=== PATIENT | male | born 1945 | race Caucasian/White ===

== ENCOUNTER 2016-10-31 18:40 | Outpatient (CLI) | payer OTHER | END 2016-10-31 18:41 | disposition home or self-care (01) | DX: E11.9 Type 2 diabetes mellitus without complications (principal) ==

== ENCOUNTER 2017-01-23 08:29 | Outpatient (CLI) | payer OTHER | END 2017-01-23 08:30 | disposition home or self-care (01) | DX: E11.9 Type 2 diabetes mellitus without complications (principal) ==

== ENCOUNTER 2017-04-30 16:15 | Outpatient (CLI) | payer OTHER ==
[2017-04-30 13:32] LABS: ALBUMIN/GLOBULIN RATIO 1.4 (1.0-2.2); BILIRUBIN,TOTAL 1.1 mg/dL (0.2-1.0); BUN - BLOOD UREA NITROGEN 19 mg/dL (6-20); CALCIUM 9.9 mg/dL (8.5-10.3); CARBON DIOXIDE - CO2 25 mmol/L (21-32); CHLORIDE 101 mmol/L (101-111); CHOL/HDL RATIO 6.1 (<5.0); CHOLESTEROL 164 mg/dL; CREATININE 0.9 mg/dL (0.6-1.2); GFR - MDRD 84 (>89); GLUCOSE 135 mg/dL (70-100); HDL CHOLESTEROL 27 mg/dL; LDL/HDL RATIO 3.7 (<3.6); POTASSIUM 3.9 mmol/L (3.5-5.0); SODIUM 137 mmol/L (135-145); TOTAL PROTEIN 7.4 g/dL (6.7-8.2); TRIGLYCERIDES 178 mg/dL; VLDL CHOLESTEROL 36 mg/dL
[2017-04-30 14:37] LABS: HEMOGLOBIN A1C 0.87 g/dL
== END 2017-04-30 16:16 | disposition home or self-care (01) ==
LOC: LAB.WCP 16:15
PROVIDERS: ATTEND Physician Assistant Medical
DX: E11.9 Type 2 diabetes mellitus without complications (principal)
CPT/HCPCS: 36415; 80053; 80061; 83036

== ENCOUNTER 2017-05-21 05:53 | Day surgery (SDC) | payer OTHER ==
[2017-05-21] MEDS ORDERED: LACTATED RINGERS 1,000 ML IV ONE ×2 (07:00→09:15)
[2017-05-21] MEDS ORDERED: fentaNYL 100 MCG/2 ML VIAL IVP ONE (07:47)
[2017-05-21] MEDS ORDERED: MIDAZOLAM 2 MG/2 ML VIAL IVP ONE (07:47)
[2017-05-21 09:35] VITALS: BP 116/80
== END 2017-05-21 05:54 | disposition home or self-care (01) ==
LOC: SDS 05:53
PROVIDERS: ATTEND Surgery
PROC: 0DJD8ZZ Inspection of Lower Intestinal Tract, Via Natural or Artificial Opening Endoscopic (ICD-10-PCS; principal; 2017-05-21 07:30)
DX: Z12.11 Encounter for screening for malignant neoplasm of colon (principal); K64.8 Other hemorrhoids; E11.9 Type 2 diabetes mellitus without complications; Z79.82 Long term (current) use of aspirin; Z79.84 Long term (current) use of oral hypoglycemic drugs; Z87.891 Personal history of nicotine dependence
CPT/HCPCS: 45378; J7120

== ENCOUNTER 2017-07-13 08:19 | Outpatient (CLI) | payer OTHER ==
[2017-07-13 13:26] LABS: BASOPHILS # (AUTO) 0.1 10^3/uL (0.0-0.1); BASOPHILS % (AUTO) 1.1 %; EOSINOPHILS # (AUTO) 0.4 10^3/uL (0.0-0.7); EOSINOPHILS % (AUTO) 4.6 %; HCT - HEMATOCRIT 46.2 % (42.0-52.0); HGB - HEMOGLOBIN 15.6 g/dL (14.0-18.0); LYMPHOCYTES # (AUTO) 2.7 10^3/uL (1.5-3.5); LYMPHOCYTES % (AUTO) 35.1 %; MEAN CORPUSCULAR HEMOGLOBIN 30.6 pg (27.0-31.0); MEAN CORPUSCULAR HGB CONC 33.7 g/dL (32.0-36.0); MEAN CORPUSCULAR VOLUME 90.6 fL (80.0-94.0); MONOCYTES # (AUTO) 0.5 10^3/uL (0.0-1.0); MONOCYTES % (AUTO) 7.2 %; NUCLEATED RED BLOOD CELLS AUTO 0.1 /100WBC; RED BLOOD COUNT 5.09 10^6/uL (4.70-6.10); RED CELL DISTRIBUTION WIDTH 14.5 % (12.0-15.0); UNCORRECTED WHITE BLOOD COUNT 7.6 x10^3/uL; WHITE BLOOD COUNT 7.6 x10^3/uL (4.8-10.8)
[2017-07-13 13:39] LABS: HEMOGLOBIN A1C 0.85 g/dL
[2017-07-13 13:53] LABS: ALBUMIN/GLOBULIN RATIO 1.6 (1.0-2.2); BILIRUBIN,TOTAL 1.1 mg/dL (0.2-1.0); BUN - BLOOD UREA NITROGEN 16 mg/dL (6-20); CALCIUM 9.6 mg/dL (8.5-10.3); CARBON DIOXIDE - CO2 27 mmol/L (21-32); CHLORIDE 101 mmol/L (101-111); CHOL/HDL RATIO 5.4 (<5.0); CHOLESTEROL 163 mg/dL; CREATININE 1.2 mg/dL (0.6-1.2); GFR - MDRD 60 (>89); GLUCOSE 131 mg/dL (70-100); HDL CHOLESTEROL 30 mg/dL; LDL/HDL RATIO 3.3 (<3.6); POTASSIUM 3.9 mmol/L (3.5-5.0); SODIUM 137 mmol/L (135-145); TOTAL PROTEIN 7.4 g/dL (6.7-8.2); TRIGLYCERIDES 175 mg/dL; VLDL CHOLESTEROL 35 mg/dL
== END 2017-07-13 08:20 | disposition home or self-care (01) ==
LOC: LAB.WCP 08:19
PROVIDERS: ATTEND Physician Assistant Medical
DX: E11.9 Type 2 diabetes mellitus without complications (principal); Z12.5 Encounter for screening for malignant neoplasm of prostate; I10 Essential (primary) hypertension
CPT/HCPCS: 36415; 80053; 80061; 82043; 83036; 84153; 84443; 85025

== ENCOUNTER 2017-10-02 08:00 | Outpatient (CLI) | payer OTHER ==
[2017-10-02 12:54] LABS: CALCIUM 9.1 mg/dL (8.5-10.3); CREATININE 0.9 mg/dL (0.6-1.2)
[2017-10-02 13:35] LABS: HB2 TOTAL 16.3 g/dL; HEMOGLOBIN A1C 0.75 g/dL; HEMOGLOBIN A1C % 6.4 % (4.6-6.2)
== END 2017-10-02 08:01 | disposition home or self-care (01) ==
LOC: LAB.WCP 08:00
PROVIDERS: ATTEND Physician Assistant Medical
DX: E11.9 Type 2 diabetes mellitus without complications (principal)
CPT/HCPCS: 36415; 80048; 83036

== ENCOUNTER 2018-01-01 08:00 | Outpatient (CLI) | payer OTHER ==
[2018-01-01 13:00] LABS: HEMOGLOBIN A1C 0.7 g/dL; HEMOGLOBIN A1C % 5.9 % (4.6-6.2)
[2018-01-01 13:15] LABS: ALBUMIN 4.3 g/dL (3.2-5.5); ALBUMIN/GLOBULIN RATIO 1.5 (1.0-2.2); ALKALINE PHOSPHATASE 29 IU/L (42-121); ALT ALANINE AMINOTRANSFERASE 60 IU/L (10-60); AST ASPARTATE AMINOTRANSFERASE 47 IU/L (10-42); BUN - BLOOD UREA NITROGEN 21 mg/dL (6-20); CALCIUM 9.9 mg/dL (8.5-10.3); CARBON DIOXIDE - CO2 26 mmol/L (21-32); CHLORIDE 100 mmol/L (101-111); CHOL/HDL RATIO 6.3 (<5.0); CHOLESTEROL 170 mg/dL; CREATININE 1.1 mg/dL (0.6-1.2); GFR - MDRD 66 (>89); GLUCOSE 106 mg/dL (70-100); HDL CHOLESTEROL 27 mg/dL; LDL CHOLESTEROL,CALCULATED 102 mg/dL; LDL/HDL RATIO 3.8 (<3.6); SODIUM 135 mmol/L (135-145); TOTAL PROTEIN 7.2 g/dL (6.7-8.2); VLDL CHOLESTEROL 41 mg/dL
== END 2018-01-01 08:01 | disposition home or self-care (01) ==
LOC: LAB.WCP 08:00
PROVIDERS: ATTEND Physician Assistant Medical
DX: E11.9 Type 2 diabetes mellitus without complications (principal)
CPT/HCPCS: 36415; 80053; 80061; 83036; 83721

== ENCOUNTER 2018-04-03 08:00 | Outpatient (CLI) | payer OTHER ==
[2018-04-03 13:32] LABS: ALBUMIN 3.9 g/dL (3.2-5.5); ALBUMIN/GLOBULIN RATIO 1.2 (1.0-2.2); ALKALINE PHOSPHATASE 31 IU/L (42-121); ALT ALANINE AMINOTRANSFERASE 49 IU/L (10-60); AST ASPARTATE AMINOTRANSFERASE 46 IU/L (10-42); BILIRUBIN,TOTAL 0.9 mg/dL (0.2-1.0); BUN - BLOOD UREA NITROGEN 21 mg/dL (6-20); CARBON DIOXIDE - CO2 24 mmol/L (21-32); CHLORIDE 102 mmol/L (101-111); CHOL/HDL RATIO 4.6 (<5.0); CHOLESTEROL 142 mg/dL; CREATININE 1.4 mg/dL (0.6-1.2); GFR - MDRD 50 (>89); GLUCOSE 90 mg/dL (70-100); HDL CHOLESTEROL 31 mg/dL; LDL CHOLESTEROL,CALCULATED 70 mg/dL; LDL/HDL RATIO 2.3 (<3.6); SODIUM 137 mmol/L (135-145); TOTAL PROTEIN 7.1 g/dL (6.7-8.2); VLDL CHOLESTEROL 41 mg/dL
[2018-04-03 13:40] LABS: HB2 TOTAL 15.8 g/dL; HEMOGLOBIN A1C 0.74 g/dL; HEMOGLOBIN A1C % 6.4 % (4.6-6.2)
== END 2018-04-03 08:01 | disposition home or self-care (01) ==
LOC: LAB.WCP 08:00
PROVIDERS: ATTEND Physician Assistant Medical
DX: E11.9 Type 2 diabetes mellitus without complications (principal)
CPT/HCPCS: 36415; 80053; 80061; 83036; 83721

== ENCOUNTER 2018-07-03 08:15 | Outpatient (CLI) | payer OTHER ==
[2018-07-03 13:03] LABS: HB2 TOTAL 15.4 g/dL; HEMOGLOBIN A1C 0.69 g/dL; HEMOGLOBIN A1C % 6.3 % (4.6-6.2)
[2018-07-03 13:08] LABS: ALBUMIN 4.4 g/dL (3.2-5.5); ALBUMIN/GLOBULIN RATIO 1.4 (1.0-2.2); ALKALINE PHOSPHATASE 25 IU/L (42-121); ALT ALANINE AMINOTRANSFERASE 51 IU/L (10-60); AST ASPARTATE AMINOTRANSFERASE 43 IU/L (10-42); BILIRUBIN,TOTAL 1.1 mg/dL (0.2-1.0); BUN - BLOOD UREA NITROGEN 21 mg/dL (6-20); CALCIUM 9.3 mg/dL (8.5-10.3); CARBON DIOXIDE - CO2 26 mmol/L (21-32); CHLORIDE 101 mmol/L (101-111); CHOL/HDL RATIO 4.2 (<5.0); CHOLESTEROL 135 mg/dL; CREATININE 0.6 mg/dL (0.6-1.2); GFR - MDRD 133 (>89); GLUCOSE 106 mg/dL (70-100); HDL CHOLESTEROL 32 mg/dL; LDL CHOLESTEROL,CALCULATED 58 mg/dL; LDL/HDL RATIO 1.8 (<3.6); SODIUM 137 mmol/L (135-145); TOTAL PROTEIN 7.5 g/dL (6.7-8.2); VLDL CHOLESTEROL 45 mg/dL
== END 2018-07-03 08:16 | disposition home or self-care (01) ==
LOC: LAB.WCP 08:15
PROVIDERS: ATTEND Physician Assistant Medical
DX: E11.9 Type 2 diabetes mellitus without complications (principal)
CPT/HCPCS: 36415; 80053; 80061; 82043; 83036; 83721

== ENCOUNTER 2018-10-02 09:27 | Outpatient (CLI) | payer OTHER ==
[2018-10-02 12:48] LABS: CALCIUM 10.4 mg/dL (8.5-10.3); CREATININE 0.8 mg/dL (0.6-1.2)
[2018-10-02 12:57] LABS: HEMOGLOBIN A1C 0.72 g/dL; HEMOGLOBIN A1C % 6.3 % (4.6-6.2)
== END 2018-10-02 23:59 | disposition home or self-care (01) ==
LOC: LAB.WCP 09:27
PROVIDERS: ATTEND Physician Assistant Medical
DX: E11.9 Type 2 diabetes mellitus without complications (principal)
CPT/HCPCS: 36415; 80048; 83036

== ENCOUNTER 2018-10-21 10:31 | Outpatient (CLI) | payer OTHER ==
[2018-10-21] MEDS ORDERED: REGADENOSON 0.4 MG/5 ML SYRINGE IVP ONE ×2 (12:53→15:28)
--- NOTE | 2018-10-21 15:22 | CARDIAC PROCEDURE NOTE ---
DATE OF SERVICE: 10/21/2018 Physician: Dayana Jane MD, [facility] INDICATIONS FOR TEST: Hypertension. Atherosclerosis of [place] artery. CARDIAC RISK FACTORS: Male gender, advanced age, hypertension, family history of heart disease, elevated cholesterol, type 2 diabetes, remote ex-smoker who quit 18 years ago. There is a history of known peripheral arterial disease. DESCRIPTION OF PROCEDURE: After signing informed consent, the patient underwent a Lexiscan pharmaceutical stress test with nuclear myocardial perfusion imaging. Resting heart rate 66. Peak heart rate 92. Resting blood pressure 222/80. Peak blood pressure 260/80. The patient's resting blood pressure was excessive, this is likely from skipping last evening's and this morning's doses of Metoprolol plus "white coat hypertension." The patient was given time to relax, and blood pressure was remeasured several times, and remained in this range. The patient was given an option to reschedule the test or continue, and risks were described. The patient had no questions and chose to proceed with the test. Lexiscan was infused per protocol. The patient had brief flushing and low back pain, no shortness of breath or chest pressure. Aminophylline 25 mg IV was given for reversal due to excessive blood pressure response, possibly from the Lexiscan stress agent. RESTING EKG: Normal sinus rhythm, left atrial enlargement, LAFB, PRWP, flat T- waves in leads II, III and aVF, and V3 through V6. EKG AT [facility]: Pseudonormalization of T-waves in leads II, III, aVF, and V3 through V6. SUMMARY 1. Abnormal resting electrocardiogram. 2. Poorly controlled blood pressure at rest. 3. Ischemic changes by EKG criteria on this pharmaceutical stress test. 4. Nuclear images reported separately. cc: MD Wai Pandey MD TD: 10/21/2018 14:58 MTDD
--- NOTE | 2018-10-21 16:00 | Nuclear Medicine Report ---
Reason: HTN, ATHEROSCLEROSIS OF [place] ART[place] Procedure Date: 10/21/2018 Accession Number: [id number] / [id number] Procedure: NM - Myocardial Perfusion STR/RST CPT Code: FULL RESULT: EXAM: SINGLE-ISOTOPE PHARMACOLOGICAL STRESS TEST WITH REGADENOSON. SINGLE-ISOTOPE AND ONE-DAY REST/STRESS MYOCARDIAL PERFUSION SCANS WITH TOMOGRAPHIC IMAGING, QUANTITATIVE ANALYSIS, WALL MOTION ANALYSIS AND CALCULATION OF EJECTION FRACTION. EXAM DATE: 10/21/2018 03:26 PM. CLINICAL HISTORY: HTN, ATHEROSCLEROSIS OF [place]. COMPARISON: None. TECHNIQUE: After the intravenous administration of 10 mCi of Tc-99m sestamibi, a rest myocardial perfusion scan was done with tomography. Motion correction was applied when appropriate. After an appropriate delay, pharmacological stress was performed with the infusion of 0.4 mg regadenoson per protocol. According to protocol, 43 mCi of Tc-99m sestamibi was injected for stress myocardial perfusion scan. Motion correction was applied when appropriate. Gated tomographic images were obtained for wall motion analysis and computation of left ventricular ejection fraction. FINDINGS: There is mildly decreased activity in the distal septum on the rest images, normal on the stress images, presumed soft tissue attenuation artifact. There is moderately decreased activity in the inferolateral wall, similar between the rest and stress images. Computer analysis. Summed stress score 6 Summed rest score 6 Summed difference score 0 Wall motion analysis demonstrates no focal wall motion abnormality. The left ventricular end-diastolic volume is 63 cc. The left ventricular end-systolic volume is 9 cc. The left ventricular ejection fraction is calculated to be 86%. IMPRESSION: 1. Mild to moderate severity fixed defect in the inferolateral wall. No convincing reversible perfusion defects on visual analysis. 2. Left ventricular ejection fraction of >65%. 3. Normal segmental and global wall motion. 4. Normal left ventricular cavity size, no change with stress. 5. Based on computer analysis, mildly abnormal study with no ischemia. RADIA
== END 2018-10-21 10:32 | disposition home or self-care (01) ==
LOC: DI 10:31
PROVIDERS: ATTEND Internal Medicine Cardiovascular Disease
DX: I10 Essential (primary) hypertension (principal); I70.219 Atherosclerosis of native arteries of extremities with intermittent claudication, unspecified extremity; R94.31 Abnormal electrocardiogram [ECG] [EKG]; E78.00 Pure hypercholesterolemia, unspecified; E11.9 Type 2 diabetes mellitus without complications; Z87.891 Personal history of nicotine dependence; Z82.49 Family history of ischemic heart disease and other diseases of the circulatory system
CPT/HCPCS: 78452; 93017; A9500; J2785

== ENCOUNTER 2018-12-25 08:00 | Outpatient (CLI) | payer OTHER ==
[2018-12-25 13:46] LABS: ALBUMIN 4.1 g/dL (3.2-5.5); ALBUMIN/GLOBULIN RATIO 1.3 (1.0-2.2); ALKALINE PHOSPHATASE 32 IU/L (42-121); ALT ALANINE AMINOTRANSFERASE 57 IU/L (10-60); AST ASPARTATE AMINOTRANSFERASE 51 IU/L (10-42); BILIRUBIN,TOTAL 1.3 mg/dL (0.2-1.0); BUN - BLOOD UREA NITROGEN 21 mg/dL (6-20); CALCIUM 9.3 mg/dL (8.5-10.3); CARBON DIOXIDE - CO2 24 mmol/L (21-32); CHLORIDE 101 mmol/L (101-111); CHOLESTEROL 154 mg/dL; CREATININE 1.2 mg/dL (0.6-1.2); GFR - MDRD 60 (>89); GLUCOSE 127 mg/dL (70-100); HB2 TOTAL 15.2 g/dL; HDL CHOLESTEROL 31 mg/dL; HEMOGLOBIN A1C 0.73 g/dL; HEMOGLOBIN A1C % 6.5 % (4.6-6.2); LDL CHOLESTEROL,CALCULATED 78 mg/dL; LDL/HDL RATIO 2.5 (<3.6); SODIUM 136 mmol/L (135-145); TOTAL PROTEIN 7.2 g/dL (6.7-8.2); VLDL CHOLESTEROL 45 mg/dL
== END 2018-12-25 08:01 | disposition home or self-care (01) ==
LOC: LAB.WCP 08:00
PROVIDERS: ATTEND Physician Assistant Medical
DX: E11.9 Type 2 diabetes mellitus without complications (principal); E78.5 Hyperlipidemia, unspecified
CPT/HCPCS: 36415; 80053; 80061; 83036; 83721

== ENCOUNTER 2019-04-16 08:00 | Outpatient (CLI) | payer OTHER ==
[2019-04-16 13:15] LABS: HB2 TOTAL 15.5 g/dL
[2019-04-16 13:16] LABS: HEMOGLOBIN A1C 0.72 g/dL; HEMOGLOBIN A1C % 6.4 % (4.6-6.2)
[2019-04-16 14:15] LABS: CALCIUM 10.1 mg/dL (8.5-10.3); CREATININE 1.4 mg/dL (0.6-1.2)
== END 2019-04-16 23:59 | disposition home or self-care (01) ==
LOC: LAB.WCP 08:00
PROVIDERS: ATTEND Physician Assistant Medical
DX: E11.9 Type 2 diabetes mellitus without complications (principal)
CPT/HCPCS: 36415; 80048; 83036

== ENCOUNTER 2019-07-16 08:00 | Outpatient (CLI) | payer OTHER ==
[2019-07-16 12:36] LABS: BASOPHILS # (AUTO) 0.1 10^3/uL (0.0-0.1); BASOPHILS % (AUTO) 1.1 %; EOSINOPHILS # (AUTO) 0.4 10^3/uL (0.0-0.7); EOSINOPHILS % (AUTO) 4.6 %; HGB - HEMOGLOBIN 14.3 g/dL (14.0-18.0); LYMPHOCYTES # (AUTO) 2.5 10^3/uL (1.5-3.5); LYMPHOCYTES % (AUTO) 33.2 %; MEAN CORPUSCULAR HEMOGLOBIN 29.9 pg (27.0-31.0); MEAN CORPUSCULAR HGB CONC 31.9 g/dL (32.0-36.0); MEAN CORPUSCULAR VOLUME 93.5 fL (80.0-94.0); MONOCYTES # (AUTO) 0.6 10^3/uL (0.0-1.0); MONOCYTES % (AUTO) 7.9 %; NEUTROPHILS % (AUTO) 52.7 %; PLT - PLATELET COUNT 261 10^3/uL (130-450); RED BLOOD COUNT 4.79 10^6/uL (4.70-6.10); WHITE BLOOD COUNT 7.6 x10^3/uL (4.8-10.8)
[2019-07-16 12:51] LABS: ALBUMIN 4.2 g/dL (3.2-5.5); ALBUMIN/GLOBULIN RATIO 1.4 (1.0-2.2); ALKALINE PHOSPHATASE 32 IU/L (42-121); ALT ALANINE AMINOTRANSFERASE 55 IU/L (10-60); AST ASPARTATE AMINOTRANSFERASE 43 IU/L (10-42); BILIRUBIN,TOTAL 1.2 mg/dL (0.2-1.0); BUN - BLOOD UREA NITROGEN 25 mg/dL (6-20); CALCIUM 9.7 mg/dL (8.5-10.3); CARBON DIOXIDE - CO2 27 mmol/L (21-32); CHLORIDE 103 mmol/L (101-111); CHOL/HDL RATIO 5.5 (<5.0); CHOLESTEROL 154 mg/dL; CREATININE 1.5 mg/dL (0.6-1.2); GFR - MDRD 46 (>89); GLUCOSE 132 mg/dL (70-100); HDL CHOLESTEROL 28 mg/dL; LDL CHOLESTEROL,CALCULATED 85 mg/dL; SODIUM 140 mmol/L (135-145); TOTAL PROTEIN 7.3 g/dL (6.7-8.2); VLDL CHOLESTEROL 41 mg/dL
[2019-07-16 12:56] LABS: CREATININE,URINE 151.9 mg/dL; MICROALBUM/CREATININE RATIO,UR 7.2 ug/mg (<30.0); MICROALBUMIN,URINE 1.1 mg/dL (0-300.0)
[2019-07-16 13:33] LABS: HB2 TOTAL 15.4 g/dL; HEMOGLOBIN A1C 0.74 g/dL; HEMOGLOBIN A1C % 6.5 % (4.6-6.2)
== END 2019-07-16 23:59 | disposition home or self-care (01) ==
LOC: LAB.WCP 08:00
PROVIDERS: ATTEND Physician Assistant Medical
DX: E11.9 Type 2 diabetes mellitus without complications (principal); E78.5 Hyperlipidemia, unspecified; I10 Essential (primary) hypertension
CPT/HCPCS: 36415; 80053; 80061; 82043; 82570; 83036; 83721; 84443; 85025

== ENCOUNTER 2019-10-16 08:44 | Outpatient (CLI) | payer OTHER ==
[2019-10-16 12:24] LABS: ALBUMIN 4.1 g/dL (3.2-5.5); ALBUMIN/GLOBULIN RATIO 1.3 (1.0-2.2); CALCIUM 9.2 mg/dL (8.5-10.3); CREATININE 1.3 mg/dL (0.6-1.2); TOTAL PROTEIN 7.3 g/dL (6.7-8.2); URIC ACID 9.1 mg/dL (2.6-7.2)
[2019-10-16 12:56] LABS: HB2 TOTAL 14.4 g/dL; HEMOGLOBIN A1C 0.8 g/dL; HEMOGLOBIN A1C % 7.2 % (4.6-6.2)
== END 2019-10-16 08:45 | disposition home or self-care (01) ==
LOC: LAB.WCP 08:44
PROVIDERS: ATTEND Physician Assistant Medical
DX: E11.9 Type 2 diabetes mellitus without complications (principal); M79.672 Pain in left foot
CPT/HCPCS: 36415; 80053; 83036; 84550

== ENCOUNTER 2020-01-13 08:26 | Outpatient (CLI) | payer OTHER ==
[2020-01-13 12:35] LABS: ALBUMIN 4.1 g/dL (3.2-5.5); ALBUMIN/GLOBULIN RATIO 1.5 (1.0-2.2); ALKALINE PHOSPHATASE 33 IU/L (42-121); ALT ALANINE AMINOTRANSFERASE 51 IU/L (10-60); AST ASPARTATE AMINOTRANSFERASE 41 IU/L (10-42); BILIRUBIN,TOTAL 1.3 mg/dL (0.2-1.0); BUN - BLOOD UREA NITROGEN 30 mg/dL (6-20); CALCIUM 9.2 mg/dL (8.5-10.3); CARBON DIOXIDE - CO2 24 mmol/L (21-32); CHLORIDE 106 mmol/L (101-111); CHOL/HDL RATIO 6.3 (<5.0); CHOLESTEROL 146 mg/dL; CREATININE 1.6 mg/dL (0.6-1.2); GLUCOSE 110 mg/dL (70-100); HDL CHOLESTEROL 23 mg/dL; LDL CHOLESTEROL,CALCULATED 77 mg/dL; LDL/HDL RATIO 3.3 (<3.6); SODIUM 139 mmol/L (135-145); TOTAL PROTEIN 6.9 g/dL (6.7-8.2); VLDL CHOLESTEROL 46 mg/dL
[2020-01-13 12:39] LABS: HB2 TOTAL 13.8 g/dL; HEMOGLOBIN A1C 0.72 g/dL; HEMOGLOBIN A1C % 6.9 % (4.6-6.2)
== END 2020-01-13 23:59 | disposition home or self-care (01) ==
LOC: LAB.WCP 08:26
PROVIDERS: ATTEND Physician Assistant Medical
DX: E11.9 Type 2 diabetes mellitus without complications (principal)
CPT/HCPCS: 36415; 80053; 80061; 83036; 83721

== ENCOUNTER 2020-04-13 08:37 | Outpatient (CLI) | payer MEDICARE ==
[2020-04-13 12:39] LABS: CALCIUM 9.8 mg/dL (8.5-10.3); CREATININE 1.3 mg/dL (0.6-1.2)
== END 2020-04-13 23:59 | disposition home or self-care (01) ==
LOC: LAB.WCP 08:37
PROVIDERS: ATTEND Physician Assistant Medical
DX: E11.9 Type 2 diabetes mellitus without complications (principal)
CPT/HCPCS: 36415; 80048; 81599; 83036

== ENCOUNTER 2020-07-16 08:00 | Outpatient (CLI) | payer MEDICARE ==
[2020-07-16 12:00] LABS: ALBUMIN/GLOBULIN RATIO 1.3 (1.0-2.2); ALKALINE PHOSPHATASE 34 IU/L (42-121); ALT ALANINE AMINOTRANSFERASE 44 IU/L (10-60); AST ASPARTATE AMINOTRANSFERASE 46 IU/L (10-42); BILIRUBIN,TOTAL 1.2 mg/dL (0.2-1.0); BUN - BLOOD UREA NITROGEN 23 mg/dL (6-20); CALCIUM 9.4 mg/dL (8.5-10.3); CARBON DIOXIDE - CO2 25 mmol/L (21-32); CHLORIDE 102 mmol/L (101-111); CHOLESTEROL 155 mg/dL; CREATININE 1.3 mg/dL (0.6-1.2); GLUCOSE 141 mg/dL (70-100); HDL CHOLESTEROL 26 mg/dL; LDL CHOLESTEROL,CALCULATED 92 mg/dL; LDL/HDL RATIO 3.5 (<3.6); SODIUM 136 mmol/L (135-145); VLDL CHOLESTEROL 37 mg/dL
[2020-07-16 12:13] LABS: HEMOGLOBIN A1c% 8.1 % (4.27-6.07)
== END 2020-07-16 23:59 | disposition home or self-care (01) ==
LOC: LAB.WCP 08:00
PROVIDERS: ATTEND Physician Assistant Medical
DX: E11.9 Type 2 diabetes mellitus without complications (principal)
CPT/HCPCS: 36415; 80053; 80061; 83036; 83721

== ENCOUNTER 2020-10-19 08:21 | Outpatient (CLI) | payer MEDICARE ==
[2020-10-19 12:30] LABS: ALBUMIN 4.1 g/dL (3.2-5.5); ALBUMIN/GLOBULIN RATIO 1.2 (1.0-2.2); ALKALINE PHOSPHATASE 35 IU/L (42-121); ALT ALANINE AMINOTRANSFERASE 45 IU/L (10-60); AST ASPARTATE AMINOTRANSFERASE 35 IU/L (10-42); BILIRUBIN,TOTAL 1.6 mg/dL (0.2-1.0); BUN - BLOOD UREA NITROGEN 27 mg/dL (6-20); CALCIUM 9.8 mg/dL (8.5-10.3); CARBON DIOXIDE - CO2 25 mmol/L (21-32); CHLORIDE 103 mmol/L (101-111); CHOL/HDL RATIO 4.1 (<5.0); CHOLESTEROL 98 mg/dL; CREATININE 1.6 mg/dL (0.6-1.2); GLUCOSE 156 mg/dL (70-100); HDL CHOLESTEROL 24 mg/dL; LDL CHOLESTEROL,CALCULATED 41 mg/dL; LDL/HDL RATIO 1.7 (<3.6); TOTAL PROTEIN 7.4 g/dL (6.7-8.2); VLDL CHOLESTEROL 33 mg/dL
[2020-10-19 12:49] LABS: HEMOGLOBIN A1c% 8.6 % (4.27-6.07)
== END 2020-10-19 23:59 | disposition home or self-care (01) ==
LOC: LAB.WCP 08:21
PROVIDERS: ATTEND Physician Assistant Medical
DX: E11.9 Type 2 diabetes mellitus without complications (principal)
CPT/HCPCS: 36415; 80053; 80061; 83036; 83721

== ENCOUNTER 2021-01-19 08:04 | Outpatient (CLI) | payer MEDICARE ==
[2021-01-19 13:02] LABS: CALCIUM 9.8 mg/dL (8.5-10.3); CREATININE 1.4 mg/dL (0.6-1.2); POTASSIUM 4.2 mmol/L (3.5-5.0)
[2021-01-19 13:04] LABS: ESTIMATED AVERAGE GLUCOSE 177 mg/dL (70-100); HEMOGLOBIN A1c% 7.8 % (4.27-6.07)
== END 2021-01-19 23:59 | disposition home or self-care (01) ==
LOC: LAB.WCP 08:04
PROVIDERS: ATTEND Physician Assistant Medical
DX: E11.9 Type 2 diabetes mellitus without complications (principal)
CPT/HCPCS: 36415; 80048; 83036

== ENCOUNTER 2021-01-25 07:00 | Outpatient (CLI) | payer MEDICARE ==
[2021-01-25 18:33] LABS: MICROALBUM/CREATININE RATIO,UR 48.9 ug/mg (<30.0); MICROALBUMIN,URINE 9.1 mg/dL (0-300.0)
== END 2021-01-25 23:59 | disposition home or self-care (01) ==
LOC: LAB.WCP 07:00
PROVIDERS: ATTEND Physician Assistant Medical
DX: E11.9 Type 2 diabetes mellitus without complications (principal)
CPT/HCPCS: 82043; 82570

== ENCOUNTER 2021-03-16 08:00 | Outpatient (CLI) | payer MEDICARE ==
[2021-03-16 13:42] LABS: CHOL/HDL RATIO 4.1 (<5.0); CHOLESTEROL 106 mg/dL; HDL CHOLESTEROL 26 mg/dL; LDL CHOLESTEROL,CALCULATED 45 mg/dL; LDL/HDL RATIO 1.7 (<3.6); TRIGLYCERIDES 177 mg/dL; VLDL CHOLESTEROL 35 mg/dL
== END 2021-03-16 23:59 | disposition home or self-care (01) ==
LOC: LAB.WCP 08:00
PROVIDERS: ATTEND Internal Medicine Cardiovascular Disease
DX: I70.219 Atherosclerosis of native arteries of extremities with intermittent claudication, unspecified extremity (principal)
CPT/HCPCS: 36415; 80061; 83721

== ENCOUNTER 2021-04-21 08:00 | Outpatient (CLI) | payer MEDICARE ==
[2021-04-21 11:58] LABS: ESTIMATED AVERAGE GLUCOSE 180 mg/dL (70-100); HEMOGLOBIN A1c% 7.9 % (4.27-6.07)
[2021-04-21 11:59] LABS: ALBUMIN 4.4 g/dL (3.2-5.5); ALBUMIN/GLOBULIN RATIO 1.6 (1.0-2.2); ALKALINE PHOSPHATASE 34 IU/L (42-121); ALT ALANINE AMINOTRANSFERASE 33 IU/L (10-60); AST ASPARTATE AMINOTRANSFERASE 34 IU/L (10-42); BILIRUBIN,TOTAL 1.2 mg/dL (0.2-1.0); BUN - BLOOD UREA NITROGEN 33 mg/dL (6-20); CALCIUM 9.6 mg/dL (8.5-10.3); CARBON DIOXIDE - CO2 26 mmol/L (21-32); CHLORIDE 101 mmol/L (101-111); CHOL/HDL RATIO 4.2 (<5.0); CHOLESTEROL 106 mg/dL; CREATININE 1.5 mg/dL (0.6-1.2); GFR - MDRD 46 (>89); GLUCOSE 116 mg/dL (70-100); HDL CHOLESTEROL 25 mg/dL; LDL CHOLESTEROL,CALCULATED 44 mg/dL; LDL/HDL RATIO 1.8 (<3.6); SODIUM 137 mmol/L (135-145); TOTAL PROTEIN 7.1 g/dL (6.7-8.2); TRIGLYCERIDES 184 mg/dL; VLDL CHOLESTEROL 37 mg/dL
== END 2021-04-21 23:59 | disposition home or self-care (01) ==
LOC: LAB.WCP 08:00
PROVIDERS: ATTEND Physician Assistant Medical
DX: E11.9 Type 2 diabetes mellitus without complications (principal)
CPT/HCPCS: 36415; 80053; 80061; 83036; 83721

== ENCOUNTER 2021-07-22 08:00 | Outpatient (CLI) | payer MEDICARE ==
[2021-07-22 12:38] LABS: CALCIUM 10.1 mg/dL (8.5-10.3); CREATININE 1.5 mg/dL (0.6-1.2); POTASSIUM 4.1 mmol/L (3.5-5.0)
[2021-07-22 13:02] LABS: ESTIMATED AVERAGE GLUCOSE 200 mg/dL (70-100); HEMOGLOBIN A1c% 8.6 % (4.27-6.07)
== END 2021-07-22 23:59 | disposition home or self-care (01) ==
LOC: LAB.WCP 08:00
PROVIDERS: ATTEND Physician Assistant Medical
DX: E11.9 Type 2 diabetes mellitus without complications (principal)
CPT/HCPCS: 36415; 80048; 83036

== ENCOUNTER 2021-08-02 11:56 | Outpatient (CLI) | payer MEDICARE | END 2021-08-02 23:59 | disposition home or self-care (01) | LOC: LAB.WCP 11:56 | PROVIDERS: ATTEND Physician Assistant Medical | DX: Z12.5 Encounter for screening for malignant neoplasm of prostate (principal) | CPT/HCPCS: 36415; 84153 ==

== ENCOUNTER 2021-10-19 08:00 | Outpatient (CLI) | payer MEDICARE ==
[2021-10-19 12:35] LABS: CALCIUM 9.5 mg/dL (8.5-10.3); CREATININE 1.3 mg/dL (0.6-1.2); POTASSIUM 4.2 mmol/L (3.5-5.0)
[2021-10-19 12:51] LABS: ESTIMATED AVERAGE GLUCOSE 220 mg/dL (70-100); HEMOGLOBIN A1c% 9.3 % (4.27-6.07)
== END 2021-10-19 23:59 | disposition home or self-care (01) ==
LOC: LAB.WCP 08:00
PROVIDERS: ATTEND Physician Assistant Medical
DX: E11.9 Type 2 diabetes mellitus without complications (principal)
CPT/HCPCS: 36415; 80048; 83036

== ENCOUNTER 2021-11-29 08:35 | Outpatient (CLI) | payer MEDICARE ==
--- NOTE | 2021-11-29 12:06 | MRI Report ---
PROCEDURE: Shoulder RT W/O INDICATIONS: RIGHT SHOULDER PAIN TECHNIQUE: Noncontrast oblique coronal T2 fast spin echo with fat saturation, oblique sagittal T1 spin echo and T2 fast spin echo with fat saturation, axial T1 spin echo and T2 fast spin echo with fat saturation t hrough the shoulder. COMPARISON: None. Findings: Supraspinatus: Mild tendinopathy with interstitial tear. Infraspinatus: Mild to moderate tendinopathy with small partial articular and bursal surface tears. Subscapularis: No evidence of tear. Teres minor: No evidence of tear. Labrum: No evidence of tear. Biceps tendon: No evidence of subluxation or tear. Small amount of fluid surrounds the tendon, concer margot for tenosynovitis. Acromioclavicular joint: Moderate degeneration with T2 hyperintense signal within the articulation. Muscle: No significant atrophy. Bones: No significant abnormality. Fibrocystic change in the humeral head. Specifically, no evidence of fracture, contusion, or necrosis. Miscellaneous: Small glenohumeral joint effusion. Trace subacromial/subdeltoid bursal fluid. No intra-articular bodies. Intact coracoclavicular ligament. IMPRESSION: 1. Mild supraspinatus tendinopathy with interstitial tear. 2. Psif-cf-pmadhben infraspinatus tendinopathy with small partial articular and bursal surface tears. 3. Mild biceps tenosynovitis. 4. Moderate AC joint degeneration. 5. Trace subacromial/subdeltoid bursitis. 6. Small glenohumeral joint effusion. Reviewed by: Shivam Kincaid MD on 11/29/2021 12:04 PM PST Approved by: Shivam Kincaid MD on 11/29/2021 12:04 PM PST Station ID: [id number]
== END 2021-11-29 08:36 | disposition home or self-care (01) ==
LOC: DI 08:35
PROVIDERS: ATTEND Orthopaedic Surgery
DX: M75.121 Complete rotator cuff tear or rupture of right shoulder, not specified as traumatic (principal); M75.21 Bicipital tendinitis, right shoulder; M19.011 Primary osteoarthritis, right shoulder; M75.51 Bursitis of right shoulder; M25.411 Effusion, right shoulder

== ENCOUNTER 2022-01-06 08:46 | Outpatient (CLI) | payer MEDICARE, OTHER ==
--- NOTE | 2022-01-06 10:08 | Ultrasound Report ---
PROCEDURE: Duplex Ext Veins Left INDICATIONS: LEG EDEMA TECHNIQUE: Real-time imaging, as well as color and pulse Doppler interrogation, were performed of the lower extr emity deep veins from the inguinal ligament to the popliteal fossa. COMPARISON: None. FINDINGS: The deep veins are normally compressible, and free of intraluminal thrombus. Color and pu lse Doppler demonstrate normal phasic intraluminal flow. There is normal augmentation response to di stal compression maneuver. IMPRESSION: No evidence of deep vein thrombosis involving the left lower extremity. Reviewed by: Nicole Campbell MD, PhD on 01/06/2022 10:06 AM PDT Approved by: Nicole Campbell MD, PhD on 01/06/2022 10:06 AM PDT Station ID: [id number]
--- NOTE | 2022-01-06 10:20 | Ultrasound Report ---
PROCEDURE: Ankle Brachial Index INDICATIONS: LEG EDEMA TECHNIQUE: Ankle-brachial indices were obtained bilaterally and recorded. COMPARISONS: Ankle clinical index, 06/14/2016. FINDINGS: Right ankle brachial index (MEAGHAN): 0.98 Left ankle brachial index (MEAGHAN): 1.0 Healing potential: Ankle pressures >55 mm Hg in non-diabetics and >80 mm Hg in diabetics are likely to achieve primary h ealing of ischemic foot ulcers. Toe pressures >30 mm Hg are likely to achieve primary healing of ischemic foot ulcers, toe or transme tatarsal amputations. IMPRESSION: Normal ankle-brachial indices bilaterally. Reviewed by: Randell Samaniego MD on 01/06/2022 10:18 AM PDT Approved by: Randell Samaniego MD on 01/06/2022 10:18 AM PDT Station ID: [id number]
== END 2022-01-06 08:47 | disposition home or self-care (01) ==
LOC: DI 08:46
PROVIDERS: ATTEND Physician Assistant Medical
DX: R60.0 Localized edema (principal); I73.9 Peripheral vascular disease, unspecified
CPT/HCPCS: 93922

== ENCOUNTER 2022-01-18 08:15 | Outpatient (CLI) | payer OTHER ==
[2022-01-18 12:17] LABS: ALBUMIN 4.5 g/dL (3.2-5.5); ALBUMIN/GLOBULIN RATIO 1.6 (1.0-2.2); ALKALINE PHOSPHATASE 28 IU/L (42-121); ALT ALANINE AMINOTRANSFERASE 24 IU/L (10-60); AST ASPARTATE AMINOTRANSFERASE 30 IU/L (10-42); BILIRUBIN,TOTAL 1.5 mg/dL (0.2-1.0); BUN - BLOOD UREA NITROGEN 26 mg/dL (6-20); CALCIUM 9.6 mg/dL (8.5-10.3); CARBON DIOXIDE - CO2 24 mmol/L (21-32); CHLORIDE 103 mmol/L (101-111); CHOL/HDL RATIO 4.3 (<5.0); CHOLESTEROL 112 mg/dL; CREATININE 1.4 mg/dL (0.6-1.2); GFR - MDRD 50 (>89); GLUCOSE 114 mg/dL (70-100); HDL CHOLESTEROL 26 mg/dL; LDL CHOLESTEROL,CALCULATED 56 mg/dL; LDL/HDL RATIO 2.2 (<3.6); POTASSIUM 4.4 mmol/L (3.5-5.0); SODIUM 139 mmol/L (135-145); TOTAL PROTEIN 7.4 g/dL (6.7-8.2); TRIGLYCERIDES 151 mg/dL; VLDL CHOLESTEROL 30 mg/dL
[2022-01-18 20:16] LABS: ESTIMATED AVERAGE GLUCOSE 197 mg/dL (70-100); HEMOGLOBIN A1c% 8.5 % (4.27-6.07)
== END 2022-01-18 08:16 | disposition home or self-care (01) ==
LOC: LAB.N 08:15
PROVIDERS: ATTEND Physician Assistant Medical
DX: E11.9 Type 2 diabetes mellitus without complications (principal)
CPT/HCPCS: 36415; 80053; 80061; 83036; 83721

== ENCOUNTER 2022-03-31 13:05 | Outpatient (CLI) | payer OTHER ==
[2022-03-31 18:34] LABS: BILIRUBIN,URINE NEGATIVE (NEGATIVE); GLUCOSE, URINE (UA) NEGATIVE (NEGATIVE); KETONES,URINE (UA) NEGATIVE (NEGATIVE); LEUKOCYTE ESTERASE, URINE NEGATIVE (NEGATIVE); NITRITE,URINE NEGATIVE (NEGATIVE); OCCULT BLOOD,URINE NEGATIVE (NEGATIVE); PH,URINE 6.5 PH (5.0-7.5); PROTEIN,URINE NEGATIVE (NEGATIVE); UROBILINOGEN,URINE 0.2 (NORMAL) E.U./dL (NORMAL)
[2022-03-31 18:35] LABS: CLARITY,URINE CLEAR (CLEAR)
[2022-03-31 18:49] LABS: BACTERIA,URINE Few /HPF (None Seen); RBC,URINE None Seen /HPF (0-5); SQUAMOUS EPITHELIAL CELL,UR FEW Squamous (<= Few); WBC,URINE 0-3 /HPF (0-3)
== END 2022-03-31 13:06 | disposition home or self-care (01) ==
LOC: LAB.N 13:05
PROVIDERS: ATTEND Physician Assistant Medical
DX: M10.9 Gout, unspecified (principal)
CPT/HCPCS: 36415; 81001; 81003; 84550; 87086

== ENCOUNTER 2022-04-20 09:31 | Outpatient (CLI) | payer OTHER ==
[2022-04-20 12:39] LABS: CALCIUM 9.9 mg/dL (8.5-10.3); CREATININE 1.3 mg/dL (0.6-1.2); POTASSIUM 4.3 mmol/L (3.5-5.0)
[2022-04-20 12:49] LABS: ESTIMATED AVERAGE GLUCOSE 192 mg/dL (70-100); HEMOGLOBIN A1c% 8.3 % (4.27-6.07)
== END 2022-04-20 09:32 | disposition home or self-care (01) ==
LOC: LAB.N 09:31
PROVIDERS: ATTEND Physician Assistant Medical
DX: E11.9 Type 2 diabetes mellitus without complications (principal)
CPT/HCPCS: 36415; 80048; 83036

== ENCOUNTER 2022-06-22 08:49 | Outpatient (CLI) | payer OTHER | END 2022-06-22 08:50 | disposition home or self-care (01) | LOC: MAC.MOP 08:49 | PROVIDERS: ATTEND Physician Assistant Medical | DX: R00.2 Palpitations (principal); M17.12 Unilateral primary osteoarthritis, left knee; M25.462 Effusion, left knee | CPT/HCPCS: 93246 ==

== ENCOUNTER 2022-06-22 09:45 | Outpatient (CLI) | payer OTHER ==
--- NOTE | 2022-06-22 14:24 | XRAY Report ---
PROCEDURE: Knee 3 View LT INDICATIONS: KNEE PAIN,LEFT TECHNIQUE: 3 views of the left knee(s) were acquired. COMPARISON: None. FINDINGS: Bones: No fractures or dislocations. No suspicious bony lesions. Moderate medial and patellofemora l as well as mild lateral compartment narrowing is present. Small periarticular osteophytes are prese nt. No erosions. Soft tissues: Moderate joint effusion. No suspicious soft tissue calcifications. IMPRESSION: Moderate effusion with tricompartmental arthritic change. Reviewed by: Estee Knott MD on 06/22/2022 2:23 PM PDT Approved by: Estee Knott MD on 06/22/2022 2:23 PM PDT Station ID: [id number]
== END 2022-06-22 09:46 | disposition home or self-care (01) ==
LOC: DI 09:45
PROVIDERS: ATTEND Physician Assistant Medical
DX: M17.12 Unilateral primary osteoarthritis, left knee (principal); M25.462 Effusion, left knee

== ENCOUNTER 2022-06-26 09:44 | Outpatient (CLI) | payer OTHER ==
[2022-06-26 10:02] VITALS: BP 151/89
== END 2022-06-26 09:45 | disposition home or self-care (01) ==
LOC: MAC.MOP 09:44
PROVIDERS: ATTEND Physician Assistant Medical
DX: R00.2 Palpitations (principal)

== ENCOUNTER → 2022-07-26 | Outpatient (CLI) | payer OTHER | LOC: MAC.MOP 11:00 | PROVIDERS: ATTEND Physician Assistant Medical | DX: I47.1 Supraventricular tachycardia (principal); I47.20 Ventricular tachycardia, unspecified; I45.9 Conduction disorder, unspecified; I49.1 Atrial premature depolarization; I49.3 Ventricular premature depolarization | CPT/HCPCS: 93248 ==

== ENCOUNTER 2022-08-05 08:43 | Outpatient (CLI) | payer OTHER ==
[2022-08-05 09:54] LABS: ESTIMATED AVERAGE GLUCOSE 232 mg/dL (70-100); HEMOGLOBIN A1c% 9.7 % (4.27-6.07)
== END 2022-08-05 08:44 | disposition home or self-care (01) ==
LOC: LAB 08:43
PROVIDERS: ATTEND Physician Assistant Medical
DX: E11.9 Type 2 diabetes mellitus without complications (principal)
CPT/HCPCS: 36415; 83036

== ENCOUNTER 2022-11-01 08:55 | Outpatient (CLI) | payer OTHER ==
[2022-11-01 09:27] LABS: CALCIUM 9.3 mg/dL (8.5-10.3); CARBON DIOXIDE - CO2 24 mmol/L (21-32); CHLORIDE 100 mmol/L (101-111); GLUCOSE 228 mg/dL (70-100); POTASSIUM 4.2 mmol/L (3.5-5.0); SODIUM 136 mmol/L (135-145)
[2022-11-01 09:55] LABS: ALBUMIN 4.3 g/dL (3.2-5.5); ALBUMIN/GLOBULIN RATIO 1.5 (1.0-2.2); ALKALINE PHOSPHATASE 37 IU/L (42-121); ALT ALANINE AMINOTRANSFERASE 29 IU/L (10-60); AST ASPARTATE AMINOTRANSFERASE 27 IU/L (10-42); BILIRUBIN,TOTAL 1.2 mg/dL (0.2-1.0); BUN - BLOOD UREA NITROGEN 26 mg/dL (6-20); CHOL/HDL RATIO 4.2 (<5.0); CHOLESTEROL 117 mg/dL; CREATININE 1.5 mg/dL (0.6-1.2); GFR - MDRD 46 (>89); HDL CHOLESTEROL 28 mg/dL; LDL CHOLESTEROL,CALCULATED 52 mg/dL; LDL/HDL RATIO 1.9 (<3.6); TOTAL PROTEIN 7.1 g/dL (6.7-8.2); TRIGLYCERIDES 184 mg/dL; VLDL CHOLESTEROL 37 mg/dL
[2022-11-01 12:10] LABS: ESTIMATED AVERAGE GLUCOSE 237 mg/dL (70-100); HEMOGLOBIN A1c% 9.9 % (4.27-6.07)
== END 2022-11-01 08:56 | disposition home or self-care (01) ==
LOC: LAB 08:55
PROVIDERS: ATTEND Physician Assistant Medical
DX: E11.9 Type 2 diabetes mellitus without complications (principal); M10.9 Gout, unspecified
CPT/HCPCS: 36415; 80053; 80061; 83036; 83721; 84550

== ENCOUNTER 2023-02-07 07:49 | Outpatient (CLI) | payer OTHER ==
[2023-02-07 08:40] LABS: ALBUMIN 4.3 g/dL (3.2-5.5); ALBUMIN/GLOBULIN RATIO 1.4 (1.0-2.2); ALKALINE PHOSPHATASE 32 IU/L (42-121); ALT ALANINE AMINOTRANSFERASE 29 IU/L (10-60); AST ASPARTATE AMINOTRANSFERASE 31 IU/L (10-42); BILIRUBIN,TOTAL 1.4 mg/dL (0.2-1.0); BUN - BLOOD UREA NITROGEN 31 mg/dL (6-20); CALCIUM 9.6 mg/dL (8.5-10.3); CARBON DIOXIDE - CO2 24 mmol/L (21-32); CHLORIDE 104 mmol/L (101-111); CHOLESTEROL 120 mg/dL; CREATININE 1.4 mg/dL (0.6-1.2); GFR - MDRD 49 (>89); GLUCOSE 138 mg/dL (70-100); HDL CHOLESTEROL 24 mg/dL; LDL CHOLESTEROL,CALCULATED 52 mg/dL; LDL/HDL RATIO 2.2 (<3.6); POTASSIUM 4.2 mmol/L (3.5-5.0); SODIUM 139 mmol/L (135-145); TOTAL PROTEIN 7.4 g/dL (6.7-8.2); TRIGLYCERIDES 220 mg/dL; VLDL CHOLESTEROL 44 mg/dL
[2023-02-07 18:18] LABS: ESTIMATED AVERAGE GLUCOSE 174 mg/dL (70-100); HEMOGLOBIN A1c% 7.7 % (4.27-6.07)
== END 2023-02-07 07:50 | disposition home or self-care (01) ==
LOC: LAB 07:49
PROVIDERS: ATTEND Physician Assistant Medical
DX: E11.9 Type 2 diabetes mellitus without complications (principal); Z12.5 Encounter for screening for malignant neoplasm of prostate
CPT/HCPCS: 36415; 80053; 80061; 83036; 83721; 84153

== ENCOUNTER 2023-03-27 08:45 | Outpatient (CLI) | payer OTHER ==
[2023-03-27 09:46] LABS: CREATININE 1.5 mg/dL (0.6-1.2); POTASSIUM 4.3 mmol/L (3.5-5.0)
[2023-03-27 17:35] LABS: ESTIMATED AVERAGE GLUCOSE 160 mg/dL (70-100); HEMOGLOBIN A1c% 7.2 % (4.27-6.07)
== END 2023-03-27 08:46 | disposition home or self-care (01) ==
LOC: LAB 08:45
PROVIDERS: ATTEND Physician Assistant Medical
DX: E11.9 Type 2 diabetes mellitus without complications (principal)
CPT/HCPCS: 36415; 80048; 83036

== ENCOUNTER 2023-06-29 08:21 | Outpatient (CLI) | payer OTHER ==
[2023-06-29 09:02] LABS: ALBUMIN 4.4 g/dL (3.2-5.5); ALBUMIN/GLOBULIN RATIO 1.8 (1.0-2.2); ALKALINE PHOSPHATASE 37 IU/L (42-121); ALT ALANINE AMINOTRANSFERASE 18 IU/L (10-60); AST ASPARTATE AMINOTRANSFERASE 22 IU/L (10-42); BILIRUBIN,TOTAL 1.5 mg/dL (0.2-1.0); BUN - BLOOD UREA NITROGEN 27 mg/dL (6-20); CALCIUM 9.7 mg/dL (8.5-10.3); CARBON DIOXIDE - CO2 27 mmol/L (21-32); CHLORIDE 107 mmol/L (101-111); CHOL/HDL RATIO 3.3 (<5.0); CHOLESTEROL 95 mg/dL; CREATININE 1.8 mg/dL (0.6-1.3); GFR - MDRD 37 (>89); GLUCOSE 107 mg/dL (74-104); HDL CHOLESTEROL 29 mg/dL; LDL CHOLESTEROL,CALCULATED 33 mg/dL; LDL/HDL RATIO 1.1 (<3.6); POTASSIUM 4.6 mmol/L (3.5-4.5); SODIUM 140 mmol/L (135-145); TOTAL PROTEIN 6.9 g/dL (6.4-8.9); TRIGLYCERIDES 166 mg/dL (48-352); VLDL CHOLESTEROL 33 mg/dL
[2023-06-29 10:09] LABS: ESTIMATED AVERAGE GLUCOSE 154 mg/dL (70-100)
== END 2023-06-29 08:22 | disposition home or self-care (01) ==
LOC: LAB 08:21
PROVIDERS: ATTEND Physician Assistant Medical
DX: E11.9 Type 2 diabetes mellitus without complications (principal)
CPT/HCPCS: 36415; 80053; 80061; 83036; 83721

== ENCOUNTER 2023-08-23 12:27 | Outpatient (CLI) | payer OTHER ==
--- NOTE | 2023-08-23 14:09 | XRAY Report ---
PROCEDURE: Chest 2 View X-Ray INDICATIONS: URI TECHNIQUE: 2 views of the chest were acquired. COMPARISON: None. FINDINGS: Surgical changes and devices: None. Lungs and pleura: No pleural effusions or pneumothorax. Lungs are clear. Diffuse bilateral airspa ce opacities with no focal consolidation. Mediastinum: Mediastinal contours appear normal. Heart size is normal. Bones and chest wall: No suspicious bony lesions. Overlying soft tissues appear unremarkable. IMPRESSION: 1. Diffuse bilateral airspace opacities with no focal consolidation. Differential diagnosis includes chronic changes, a diffuse infectious process, and CHF. No prior x-ray is available for comparison. 2. Cardiomegaly. Reviewed by: Lyndon Matta on 08/23/2023 1:08 PM PATRICIA Approved by: Lyndon Matta on 08/23/2023 1:08 PM [facility] Station ID: [id number]
== END 2023-08-23 12:28 | disposition home or self-care (01) ==
LOC: DI 12:27
PROVIDERS: ATTEND Physician Assistant Medical
DX: J06.9 Acute upper respiratory infection, unspecified (principal); R91.8 Other nonspecific abnormal finding of lung field; I51.7 Cardiomegaly

== ENCOUNTER 2023-09-20 15:36 | Outpatient (CLI) | payer OTHER ==
[2023-09-20 16:32] LABS: CALCIUM 9.3 mg/dL (8.5-10.3); CREATININE 4.6 mg/dL (0.6-1.3); POTASSIUM 5.1 mmol/L (3.5-4.5)
--- NOTE | 2023-09-20 17:37 | CT Report ---
PROCEDURE: ABDOMEN/PELVIS WO INDICATIONS: LLQ ABDOMEN PAIN TECHNIQUE: A CT scan of the abdomen and pelvis was performed without the use of intravenous contrast. Images we re recorded and evaluated at appropriate window settings. Reformats: coronal and sagittal. For radiat ion dose reduction, the following was used: automated exposure control, adjustment of mA and/or kV ac cording to patient size. COMPARISON: 08/24/2022, chest x-ray 08/23/2023 FINDINGS: Image quality: Excellent. Lung bases and heart: Small to moderate right and trace left pleural effusions are present. Mild card iomegaly. Small pericardial effusion. No hiatal hernia. Liver: No contour deformity or attenuation abnormality. Gallbladder and biliary tree: No calcifications or wall thickening. No significant biliary dilatation . Spleen: No splenomegaly. Pancreas: Normal. Adrenals: No adrenal nodule. Kidneys and ureters: Mild left renal cortical atrophy. Atherosclerotic calcifications. No definite co llecting system calcification and no hydronephrosis. Bowel and peritoneum: Mild wall thickening in the midportion of the sigmoid colon where several diver ticula are seen. There is mild adjacent fascial thickening and trace free fluid. This loop of colon i s central in the upper pelvis. No extraluminal gas or drainable focal fluid collections. Elsewhere th e bowel vargas are normal caliber and there are a few diverticula in the hepatic flexure colon. No sma ll bowel obstruction. Normal stomach. Normal appendix. Lymph nodes: No central or retroperitoneal adenopathy. Vessels: There is heavy coarse calcification in the proximal abdominal aorta at the renal artery orig ins. The mid and distal aorta demonstrates fusiform aneurysmal dilatation up to 3.6 cm in diameter. V jonah heavy calcification at the iliac bifurcation. There is a right common iliac stent in place. PELVIS Reproductive organs: Normal prostate gland. Bladder: Mild circumferential urinary bladder wall thickening, slight hyperemia, and fat stranding ar ound the serosal surface. No intraluminal abnormalities. Pelvic lymph nodes: No pelvic adenopathy by size criteria. Bones: No aggressive osseous abnormality. Other: No significant ventral or inguinal hernia. IMPRESSION: 1. Findings of adjacent inflammation and fluid surrounding a slightly thickened segment of mid sigmoi d colon. Mild or resolving diverticulitis may be present. 2. This segment of colon is immediately adjacent to the urinary bladder which demonstrates wall thick ening, hyperemia, and para vesicular inflammation. This may indicate a reactive cystitis or an infect ious cystitis. Correlation with UA is recommended. 3. Incidental note of mid to distal abdominal aortic aneurysm and heavy atherosclerotic calcification as described. Reviewed by: Siri Lora MD on 09/20/2023 5:35 PM PST Approved by: Siri Lora MD on 09/20/2023 5:35 PM PST Station ID: [id number]
== END 2023-09-20 15:37 | disposition home or self-care (01) ==
LOC: DI 15:36
PROVIDERS: ATTEND Physician Assistant
DX: N32.89 Other specified disorders of bladder (principal); R10.32 Left lower quadrant pain
CPT/HCPCS: 36415; 80048; 82088; 84244

== ENCOUNTER 2023-09-20 17:03 | Inpatient (IN) | payer MEDICARE, OTHER ==
[2023-09-20 17:50] LABS: BILIRUBIN,URINE NEGATIVE (NEGATIVE); GLUCOSE, URINE (UA) NEGATIVE (NEGATIVE); KETONES,URINE (UA) NEGATIVE (NEGATIVE); LEUKOCYTE ESTERASE, URINE NEGATIVE (NEGATIVE); NITRITE,URINE NEGATIVE (NEGATIVE); OCCULT BLOOD,URINE NEGATIVE (NEGATIVE); PROTEIN,URINE NEGATIVE (NEGATIVE); UROBILINOGEN,URINE 0.2 (NORMAL) E.U./dL (NORMAL)
[2023-09-20 17:53] LABS: CLARITY,URINE CLEAR (CLEAR)
[2023-09-20 18:03] LABS: BASOPHILS % (AUTO) 0.5 %; EOSINOPHILS # (AUTO) 0.4 10^3/uL (0.0-0.7); EOSINOPHILS % (AUTO) 5.5 %; HCT - HEMATOCRIT 30.2 % (42.0-52.0); HGB - HEMOGLOBIN 9.9 g/dL (14.0-18.0); LYMPHOCYTES # (AUTO) 1.5 10^3/uL (1.5-3.5); LYMPHOCYTES % (AUTO) 20.2 %; MEAN CORPUSCULAR HEMOGLOBIN 29.1 pg (27.0-31.0); MEAN CORPUSCULAR HGB CONC 32.8 g/dL (32.0-36.0); MEAN CORPUSCULAR VOLUME 88.8 fL (80.0-94.0); MEAN PLATELET VOLUME 9.1 fL (7.4-11.4); MONOCYTES # (AUTO) 0.6 10^3/uL (0.0-1.0); MONOCYTES % (AUTO) 7.4 %; NEUTROPHILS % (AUTO) 66.3 %; PLT - PLATELET COUNT 177 10^3/uL (130-450); RED CELL DISTRIBUTION WIDTH 15.3 % (12.0-15.0); WHITE BLOOD COUNT 7.6 x10^3/uL (4.8-10.8)
[2023-09-20 18:21] LABS: ALBUMIN 4.2 g/dL (3.2-5.5)
[2023-09-20 18:31] LABS: ALBUMIN/GLOBULIN RATIO 1.9 (1.0-2.2); CALCIUM 9.1 mg/dL (8.5-10.3); CREATININE 4.4 mg/dL (0.6-1.3); POTASSIUM 4.9 mmol/L (3.5-4.5); TOTAL PROTEIN 6.4 g/dL (6.4-8.9)
[2023-09-20] MEDS ORDERED: SODIUM CHLORIDE 0.9% 1,000 ML IV STA ×2 (19:09→21:27)
[2023-09-20] MEDS ORDERED: metroNIDAZOLE 500 MG/100 ML 500 MG/100 ML BAG IV ONE (20:38)
[2023-09-20] MEDS ORDERED: AMOX/CLAV 875 MG/125 MG TABLET PO STA (20:38)
[2023-09-20] MEDS ORDERED: ONDANSETRON 4 MG/2 ML VIAL IVP STA (22:51)
[2023-09-21] MEDS ORDERED: SODIUM CHLORIDE 0.9% 1,000 ML IV STA (00:05)
--- NOTE | 2023-09-21 00:31 | ED Physician Documentation ---
PD HPI ABD PAIN - Stated complaint Stated Complaint: LT SIDE ABD PX - Chief complaint Chief Complaint: Abd Pain - History obtained from History obtained from: Patient - Additional information Additional information: The patient is sent to the emergency department for chief complaint of "abnormal labs" and left lower quadrant abdominal pain. The patient states that he has had the pain for the last couple of days and because of this, his primary doctor ordered some labs and a CT scan. The patient has a history of diverticulitis and this is what was suspected. However, when labs came back, the patient was found to have elevated BUN and creatinine above his usual and was sent here for further evaluation. He did receive a noncontrast CT as an outpatient this morning. The patient has a history of diabetes and poorly controlled hypertension and has for years had stable renal insufficiency with GFR is in the 40s to 50s, creatinines in the 1.3-1.6 range, and BUNs in the 20s to 30s. He is followed for his diabetes by endocrinology at [facility], for coronary artery disease by cardiology at [facility], and for peripheral vascular disease by vascular at [facility]. He has had iliofemoral stents placed. The patient states that for about the past month, he has noticed a decreased appetite in general and does not think he has been drinking much fluid throughout that time. However, for the last week, he states that every time he tries to drink anything, he feels like he is going to gag, so he is hardly been drinking any water. He states he feels a little tired but other than that in the left lower quadrant abdominal pain, he states is not feeling too bad. The patient denies any fevers or chills. No dysuria. No respiratory symptoms. He has been urinating. No other complaints at this time. PD PAST MEDICAL HISTORY - Past Medical History Cardiovascular: Hypertension, High cholesterol Respiratory: Sleep apnea, Other Endocrine/Autoimmune: Type 2 diabetes GI: GERD, Ulcers, Other : Renal insuffiency HEENT: Glaucoma Psych: None Musculoskeletal: Osteoarthritis, Other Derm: None - Past Surgical History Ortho: Other Cardiovascular: Other HEENT: Rhinoplasty - Present Medications Home Medications: Ambulatory Orders Medication Instructions Recorded Confirmed Glimepiride 2 mg PO DAILY 05/21/17 12/02/21 [place]-3/Dha/Epa/Fish Oil [Fish Oil 600 mg PO DAILY 05/21/17 12/02/21 500 mg Softgel] Aller-Dorita 1 tab PO DAILY 12/02/21 12/02/21 Colchicine [Colcrys] 0.6 mg PO DAILY 12/02/21 12/02/21 Insulin NPH Human Isophane 18 - 20 unit SUBQ BID 12/02/21 12/02/21 [Humulin N Kwikpen] Lisinopril [Zestril] 20 mg PO DAILY 12/02/21 12/02/21 Metoprolol Tartrate [Lopressor] 25 mg PO BID 12/02/21 12/02/21 [place]-3S/Dha/Epa/Fish Oil [Fish 1 cap PO DAILY 12/02/21 12/02/21 Oil 1,200 mg Softgel] Rosuvastatin Calcium [Crestor] 20 mg PO 12/02/21 Ubidecarenone/Vit E Acet [Co Q-10 1 each PO DAILY 12/02/21 12/02/21 100 mg Softgel] amLODIPine [Norvasc] 5 mg PO BID 12/02/21 12/02/21 - Allergies Allergies/Adverse Reactions: Allergies Allergy/AdvReac Type Severity Reaction Status Date / Time Sulfa (Sulfonamide Allergy Itching Verified 09/20/23 17:20 Antibiotics) cyclobenzaprine AdvReac Unknown Verified 09/20/23 17:20 Uyedzhd-PQO-NdF Reductase AdvReac Cramps Verified 09/20/23 17:20 Inhibitor [Rhtjtgz-Oka-Tmr Reductase Inhibitor] - Social History Smoking Status: Former smoker PD ED PE NORMAL - Vitals Vital signs reviewed: Yes - General General: Alert and oriented X 3, No acute distress, Well developed/nourished, Other (Overall well-appearing patient in no apparent distress.) - HEENT HEENT: Atraumatic, PERRL, EOMI, Moist mucous membranes - Neck Neck: Supple, no meningeal sign - Cardiac Cardiac: RRR, No murmur - Respiratory Respiratory: No respiratory distress, Clear bilaterally - Abdomen Abdomen: Soft, Non distended, Other (Left lower quadrant abdominal tenderness, no rebound or guarding.) - Derm Derm: Normal color, Warm and dry, No rash - Extremities Extremities: No deformity, No edema - Neuro Neuro: Alert and oriented X 3, sales trader 2-12 intact, Normal speech, Other (Grossly intact) - Psych Psych: Normal mood, Normal affect Results - Vitals Vitals: Vital Signs - 24 hr 09/20/23 09/20/23 09/20/23 17:11 19:30 20:00 Temperature 36.6 C Heart Rate 68 56 L 59 L Respiratory 17 16 17 Rate Blood Pressure 225/75 H 172/62 H O2 Saturation 96 95 96 09/20/23 22:00 Temperature Heart Rate 63 Respiratory 17 Rate Blood Pressure 211/78 H O2 Saturation 94 Oxygen O2 Source Room air - Labs Labs: Laboratory Tests 09/20/23 09/20/23 09/20/23 17:21 17:58 17:58 WBC 7.6 RBC 3.40 L Hgb 9.9 L Hct 30.2 L MCV 88.8 MCH 29.1 MCHC 32.8 RDW 15.3 H Plt Count 177 MPV 9.1 Neut # (Auto) 5.0 Lymph # (Auto) 1.5 [place] # (Auto) 0.6 Eos # (Auto) 0.4 Baso # (Auto) 0.0 Absolute Nucleated RBC 0.00 Nucleated RBC % 0.0 Sodium 133 L Potassium 4.9 H Chloride 105 Carbon Dioxide 17 L Anion Gap 11.0 BUN 86 H* Creatinine 4.4 H Estimated GFR (MDRD) 13 L Glucose 100 Calcium 9.1 Total Bilirubin 1.0 AST 16 ALT 12 Alkaline Phosphatase 42 Total Protein 6.4 Albumin 4.2 Globulin 2.2 Albumin/Globulin Ratio 1.9 Lipase 84 H Urine Color YELLOW Urine Clarity CLEAR Urine pH 6.0 Ur Specific [place] <=1.005 Urine Protein NEGATIVE Urine Glucose (UA) NEGATIVE Urine Ketones NEGATIVE Urine Occult Blood NEGATIVE Urine Nitrite NEGATIVE Urine Bilirubin NEGATIVE Urine Urobilinogen 0.2 (NORMAL) Ur Leukocyte Esterase NEGATIVE Ur Microscopic Review NOT INDICATED Urine Culture Comments NOT INDICATED PD Medical Decision Making - ED course Complexity details: reviewed old records, reviewed results, re-evaluated patient, considered differential, d/w patient, d/w hospice consultant ED course: The patient was started on IV fluids after is able to review his labs from this morning, which showed a GFR of 13. I repeated the labs here and he was found to have a BUN of 86, creatinine of 4.4, and GFR of 13. I did review his labs from prior visits and found that he has had fairly stable kidney function going back to 2019. His last labs, done a few weeks ago, showed the patient to be at his baseline kidney function. The patient's urinalysis here was completely normal. His white blood cell count was normal and he was moderately anemic. The potassium was found to be 4.9. The remainder of his ER abdominal panel was unremarkable. I did consult nephrology at [facility], since it seems this is where the patient gets the majority of his specialty care, and was able to discuss the case with Dr. Ramsay, who is on-call. He did review the patient's records and it appears the patient's assistant film editor has ordered renal ultrasound and renal studies, but these have not been done yet. Dr. Ramsay stated that it is highly unlikely that the patient would require dialysis as an inpatient, given his normal urinalysis and the fact that he is making urine. He stated that although they would be willing to transfer, the current transfer situation is very difficult at [facility], as it is at every [facility], and as such, that a reasonable approach would be to admit the patient here would be for fluid hydration and serial labs with plan to refer to nephrology as an outpatient and complete the ultrasound and renal studies that have already been ordered. The patient was agreeable to this plan. I did discuss the case with the on-call telehospitalist, who was agreeable. I have reviewed the patient's CT from this morning, and this does show likely sigmoid diverticulitis. The patient has been given antibiotics here in the emergency department for his diverticulitis. I have given the patient 2 full liters of normal saline and he is currently receiving his third. He has urinated twice while in the emergency department. Departure - Departure Disposition: [facility] DC/Xfer Clinical Impression: Acute on chronic renal failure, Diverticulitis Condition: Serious
[2023-09-21] MEDS ORDERED: SODIUM CHLORIDE FLUSH 0.9% 10 ML SYRINGE IVP PRN (01:47)
[2023-09-21] MEDS ORDERED: ONDANSETRON 4 MG/2 ML VIAL IVP PRN (01:47)
[2023-09-21] MEDS: SODIUM CHLORIDE 0.9% 1,000 ML IV SCH ×2 (02:31→15:02)
--- NOTE | 2023-09-21 04:22 | HISTORY & PHYSICAL EXAMINATION ---
Chief Complaint - Chief Complaint Chief Complaint: abd pain, reduced oral intake, worsening renal function History of Present Illness - History of Present Illness HPI Comment/Other: pt presents with generalized abd discomfort and loose stools with symptoms that have been progressively worsening over past few days. he states that he has not been eating much since around , d/t "bronchitis." he was seen as outpt and provider had ordered some lab work and abd imaging (CT) given his h/o diverticulitis. CT returned back positive for diverticulitis and lab work was very concerning for worsening renal function, with Cr >4. pt is making urine and denies any blood or discomfort with urination. denies any hematuria or blood per rectum. no chest pain or sob. he states he feels nauseated when he tries to eat. History - Past Medical History Cardiovascular: reports: Hypertension, High cholesterol Respiratory: reports: Sleep apnea, Other Endocrine/Autoimmune: reports: Type 2 diabetes GI: reports: GERD, Ulcers, Other : reports: Renal insuffiency HEENT: reports: Glaucoma Psych: reports: None Musculoskeletal: reports: Osteoarthritis, Other Derm: reports: None MRSA Hx?: No - Past Surgical History Ortho: reports: Other Cardiovascular: reports: Other HEENT: reports: Rhinoplasty Meds/Allgy - Home Medications Home Medications: Ambulatory Orders Medication Instructions Recorded Confirmed Glimepiride 2 mg PO DAILY 05/21/17 12/02/21 [place]-3/Dha/Epa/Fish Oil [Fish Oil 600 mg PO DAILY 05/21/17 12/02/21 500 mg Softgel] Aller-Dorita 1 tab PO DAILY 12/02/21 12/02/21 Colchicine [Colcrys] 0.6 mg PO DAILY 12/02/21 12/02/21 Insulin NPH Human Isophane 18 - 20 unit SUBQ BID 12/02/21 12/02/21 [Humulin N Kwikpen] Lisinopril [Zestril] 20 mg PO DAILY 12/02/21 12/02/21 Metoprolol Tartrate [Lopressor] 25 mg PO BID 12/02/21 12/02/21 [place]-3S/Dha/Epa/Fish Oil [Fish 1 cap PO DAILY 12/02/21 12/02/21 Oil 1,200 mg Softgel] Rosuvastatin Calcium [Crestor] 20 mg PO 12/02/21 Ubidecarenone/Vit E Acet [Co Q-10 1 each PO DAILY 12/02/21 12/02/21 100 mg Softgel] amLODIPine [Norvasc] 5 mg PO BID 12/02/21 12/02/21 - Allergies Allergies/Adverse Reactions: Allergies Allergy/AdvReac Type Severity Reaction Status Date / Time Sulfa (Sulfonamide Allergy Itching Verified 09/20/23 17:20 Antibiotics) cyclobenzaprine AdvReac Unknown Verified 09/20/23 17:20 Klylkzh-MZF-DmX Reductase AdvReac Cramps Verified 09/20/23 17:20 Inhibitor [Cyxhtnh-Vbp-Nfz Reductase Inhibitor] Review of Systems - Other Findings Other Findings: 14 pt review done with positives per hpi; all others reviewed as negative Exam - Vital Signs Vital Signs: Vital Signs x48h Temp Pulse Pulse Resp BP BP Pulse Ox 09/21/23 03:10 37.2 C 67 22 179/65 H 94 09/21/23 02:00 61 17 150/62 H 92 09/21/23 00:00 59 L 16 143/52 H 94 09/20/23 22:00 63 17 211/78 H 94 - Physical Exam Comments/Other: gen - aaox3, nad, polite heent - eomi, nc/at heart - per ed charting lungs - per ed charting abd - soft, diffuse tenderness per pt msk - no acute trauma Conclusion/Plan - Lab Results Fish Bones: 09/20/23 17:58 09/20/23 17:58 - Other Other Results/Comments: pt with - - acute renal failure unclear etiology multifactorial - volume depletion / dehydration, diabetic nephropathy, autoimmune, etc pending nephrology w/u as outpt check renal sono, continue IVF, avoid nephrotoxins as much as possible pt still making urine and UA wnl check urine Na, Cr, protein - acute diverticulitis h/o same a few years ago contributory to above and below rocephin + flagyl, continue IVF, supportive mgmt - decreased po intake contributory to and in setting of above may also be d/t diabetic gastropathy (nausea, reflux when trying to eat) zofran prn, ivf, encourage CLD for now further orders per clinical course
[2023-09-21] MEDS: metroNIDAZOLE 500 MG/100 ML 500 MG/100 ML BAG IV SCH ×3 (05:07→20:39)
[2023-09-21] MEDS: PANTOPRAZOLE 40 MG TABLET PO SCH (06:20)
[2023-09-21] MEDS ORDERED: hydrALAZINE INJ 20 MG/ML VIAL IVP PRN (07:38)
[2023-09-21 07:56] LABS: BASOPHILS % (AUTO) 0.2 %; EOSINOPHILS # (AUTO) 0.3 10^3/uL (0.0-0.7); HCT - HEMATOCRIT 28.1 % (42.0-52.0); HGB - HEMOGLOBIN 9.1 g/dL (14.0-18.0); LYMPHOCYTES # (AUTO) 0.6 10^3/uL (1.5-3.5); LYMPHOCYTES % (AUTO) 5.9 %; MEAN CORPUSCULAR HEMOGLOBIN 29.5 pg (27.0-31.0); MEAN CORPUSCULAR HGB CONC 32.4 g/dL (32.0-36.0); MEAN CORPUSCULAR VOLUME 91.2 fL (80.0-94.0); MEAN PLATELET VOLUME 9.2 fL (7.4-11.4); MONOCYTES # (AUTO) 0.7 10^3/uL (0.0-1.0); MONOCYTES % (AUTO) 6.7 %; NEUTROPHILS # (AUTO) 8.5 10^3/uL (1.5-6.6); PLT - PLATELET COUNT 159 10^3/uL (130-450); RED BLOOD COUNT 3.08 10^6/uL (4.70-6.10); RED CELL DISTRIBUTION WIDTH 15.5 % (12.0-15.0); WHITE BLOOD COUNT 10.1 x10^3/uL (4.8-10.8)
[2023-09-21 08:20] LABS: CALCIUM 8.2 mg/dL (8.5-10.3); CREATININE 4.8 mg/dL (0.6-1.3); POTASSIUM 5.3 mmol/L (3.5-4.5)
[2023-09-21] MEDS: SODIUM CHLORIDE FLUSH 0.9% 10 ML SYRINGE IVP SCH ×2 (08:53→20:06)
[2023-09-21] MEDS: cefTRIAXone 1 GM in SODIUM CHLORIDE 0.9% MINIBAG 100 ML IV SCH (08:55)
[2023-09-21] MEDS ORDERED: FISH OIL PO SCH (09:00)
[2023-09-21] MEDS ORDERED: OMEGA PO SCH (09:00)
[2023-09-21] MEDS: HEPARIN 5,000 UNIT/ML VIAL SUBQ SCH ×2 (09:00→20:39)
[2023-09-21] MEDS ORDERED: EPA PO SCH (09:00)
[2023-09-21] MEDS ORDERED: METOPROLOL TARTRATE 25 MG TABLET PO SCH (09:00)
[2023-09-21] MEDS ORDERED: DHA PO SCH (09:00)
[2023-09-21] MEDS ORDERED: ASCORBIC ACID 500 MG TABLET PO SCH (09:00)
[2023-09-21] MEDS: INSULIN LISPRO 300 UNIT/3 ML PEN SUBQ SCH ×4 (09:04→21:43)
[2023-09-21 09:06] LABS: CREATININE,URINE 188.7 mg/dL
[2023-09-21 11:32] LABS: ESTIMATED AVERAGE GLUCOSE 120 mg/dL (70-100); HEMOGLOBIN A1c% 5.8 % (4.27-6.07)
--- NOTE | 2023-09-21 12:04 | PHARMACY PROGRESS NOTE ---
- Best Possible Medication History Admit Date and Time: 09/21/23 09 Processed by: Pharmacy Medication History completed: Yes Patient Interview: Completed Secondary Source(s): Spouse/Significant other, Insurance records As the person ultimately responsible for medication therapy, providers are able to order a medication from an existing home medication list in [facility] via the "Reconcile Routine" prior to Confirmation of that medication by ground support agent. Such practice is discouraged except when the physician, in their clinical judgment, deems that a medical need exists for a medication without regard to previous use.
--- NOTE | 2023-09-21 12:20 | Ultrasound Report ---
PROCEDURE: Retroperitoneal INDICATIONS: kaity TECHNIQUE: Real-time scanning was performed of the retroperitoneal organs, with image documentation. COMPARISON: Renal ultrasound, 08/18/2016. CT abdomen and pelvis without, 09/20/2023. FINDINGS: Limited examination of left kidney due to overlying bowel gas. Kidneys: Kidneys are normal in size. Right kidney measures 9.6 cm long; left kidney measures 10.3 c m long. Right renal cortical thickness is 0.6 cm; left renal cortical thickness is 1.0 cm. No solid masses, hydronephrosis, or nephrolithiasis. Bladder: Pre-void bladder volume is 28 mL. The patient did not void. Pre-void images demonstrate no intraluminal masses or stones. On pre-void images, both ureteral jets are noted with color Doppler interrogation. (Of note, ureteral jets may not be detectable in up to 25% of cases due to insufficie nt differences in specific gravity between ureteral and bladder urine). Prostate is prominent in siz e. Miscellaneous: No free abdominal fluid. IMPRESSION: 1. Left kidney is suboptimally visualized. A cause for KAITY is not identified. No hydronephrosis. 2. Nondistended urinary bladder. Unable to evaluate post void residual. 3. Prominent prostate. Reviewed by: Randell Samaniego MD on 09/21/2023 12:18 PM PST Approved by: Randell Samaniego MD on 09/21/2023 12:18 PM PST Station ID: [id number]
[2023-09-21] MEDS: LACTOBACILLUS RHAMNOSUS GG CAPSULE PO SCH (12:31)
[2023-09-21] MEDS: ATORVASTATIN 40 MG TABLET PO SCH (12:31)
[2023-09-21] MEDS: METOPROLOL SUCCINATE 25 MG TABLET PO SCH (12:31)
[2023-09-21] MEDS: amLODIPine 5 MG TABLET PO SCH (12:31)
[2023-09-21] MEDS: COLCHICINE 0.6 MG TABLET PO SCH (12:31)
[2023-09-21] MEDS: OMEGA-3 ACID ETHYL ESTERS 1 GM CAPSULE PO SCH (12:32)
[2023-09-21] MEDS: ACETAMINOPHEN 325 MG TABLET PO PRN (12:35)
[2023-09-21] MEDS: ASPIRIN EC 81 MG TABLET PO SCH (12:36)
[2023-09-22] MEDS: SODIUM CHLORIDE FLUSH 0.9% 10 ML SYRINGE IVP SCH ×3 (00:34→16:47)
[2023-09-22] MEDS: SODIUM CHLORIDE 0.9% 1,000 ML IV SCH (01:41)
[2023-09-22] MEDS: ACETAMINOPHEN 325 MG TABLET PO PRN ×3 (02:47→16:47)
[2023-09-22] MEDS: metroNIDAZOLE 500 MG/100 ML 500 MG/100 ML BAG IV SCH ×2 (05:02→12:58)
[2023-09-22 05:50] LABS: BASOPHILS % (AUTO) 0.3 %; EOSINOPHILS # (AUTO) 0.6 10^3/uL (0.0-0.7); EOSINOPHILS % (AUTO) 5.7 %; HCT - HEMATOCRIT 28.2 % (42.0-52.0); HGB - HEMOGLOBIN 8.9 g/dL (14.0-18.0); LYMPHOCYTES # (AUTO) 2.1 10^3/uL (1.5-3.5); MEAN CORPUSCULAR HEMOGLOBIN 29.2 pg (27.0-31.0); MEAN CORPUSCULAR HGB CONC 31.6 g/dL (32.0-36.0); MEAN CORPUSCULAR VOLUME 92.5 fL (80.0-94.0); MEAN PLATELET VOLUME 9.5 fL (7.4-11.4); MONOCYTES # (AUTO) 0.8 10^3/uL (0.0-1.0); MONOCYTES % (AUTO) 7.6 %; NEUTROPHILS # (AUTO) 6.9 10^3/uL (1.5-6.6); NEUTROPHILS % (AUTO) 65.6 %; PLT - PLATELET COUNT 164 10^3/uL (130-450); RED BLOOD COUNT 3.05 10^6/uL (4.70-6.10); WHITE BLOOD COUNT 10.6 x10^3/uL (4.8-10.8)
[2023-09-22 06:12] LABS: CALCIUM 8.3 mg/dL (8.5-10.3); POTASSIUM 5.2 mmol/L (3.5-4.5)
[2023-09-22] MEDS: PANTOPRAZOLE 40 MG TABLET PO SCH (06:18)
[2023-09-22] MEDS ORDERED: SODIUM ZIRCONIUM CYCLOSILICATE 5 GM PACKET PO ONE (09:00)
[2023-09-22] MEDS ORDERED: DEXTROSE 5%-0.9% NACL 1,000 ML IV SCH (09:00)
[2023-09-22] MEDS: COLCHICINE 0.6 MG TABLET PO SCH (09:15)
[2023-09-22] MEDS: OMEGA-3 ACID ETHYL ESTERS 1 GM CAPSULE PO SCH (09:15)
[2023-09-22] MEDS: cefTRIAXone 1 GM in SODIUM CHLORIDE 0.9% MINIBAG 100 ML IV SCH (09:15)
[2023-09-22] MEDS: ASPIRIN EC 81 MG TABLET PO SCH (09:16)
[2023-09-22] MEDS: METOPROLOL SUCCINATE 25 MG TABLET PO SCH (09:16)
[2023-09-22] MEDS: amLODIPine 5 MG TABLET PO SCH (09:16)
[2023-09-22] MEDS: LACTOBACILLUS RHAMNOSUS GG CAPSULE PO SCH (09:16)
[2023-09-22] MEDS: ATORVASTATIN 40 MG TABLET PO SCH (09:16)
[2023-09-22] MEDS: INSULIN LISPRO 300 UNIT/3 ML PEN SUBQ SCH ×3 (09:16→18:06)
[2023-09-22] MEDS: HEPARIN 5,000 UNIT/ML VIAL SUBQ SCH (09:28)
[2023-09-22] MEDS ORDERED: hydrALAZINE 25 MG TABLET PO PRN (10:23)
[2023-09-22] MEDS ORDERED: IPRATROPIUM/ALBUTEROL 3 ML NEB INH PRN (10:35)
[2023-09-22] MEDS ORDERED: ASPIRIN EC 81 MG TABLET PO SCH (12:00)
[2023-09-22] MEDS ORDERED: IRON DEXTRAN 1,000 MG in SODIUM CHLORIDE 0.9% 250 ML IV ONE (13:00)
--- NOTE | 2023-09-22 15:48 | DISCHARGE SUMMARY ---
Discharge Summary Admit Date: 09/21/23 Discharge Date: 09/22/23 Discharging Provider: Dr Dayana Jane Primary Care Provider: YURIDIA Renee Code Status: Attempt Resuscitation Condition at Discharge: Serious Discharge Disposition: 02 Transfer Acute Care Hosp Discharge Facility Name: [facility] History of Present Illness: This is a 78-year-old male with a history of CAD, diabetes, PVD. He is followed by a radiation technician, resident care associate and vascular surgeon at [facility]. Pt presents with LLQ abd discomfort and N/V that have been progressively worsening over past few days. He states that he has not been eating much since "around gi, due to bronchitis." He then got sudden LLQ pain and was seen as an outpt yesterday by his PCP who ordered lab work and abdominal imaging (CT), given his h/o diverticulitis. CT returned back positive for diverticulitis of the sigmoid colon and lab work was very concerning for worsening renal function, with Cr >4. He was told to go to ER. Pt says he is making urine and denies any blood or discomfort with urination, and denies blood per rectum, denies chest pain or sob. He states he feels nauseated when he tries to eat and immediately vomits. The repeat labs here showed BUN of 86, creatinine of 4.4, and GFR of 13. His baseline kidney function had creat of 1.3. The patient's urinalysis here was completely normal. His WBC count was normal and he was moderately anemic. The potassium was found to be 4.9. The remainder of his ER abdominal panel was unremarkable. The ER provider did consult Nephrology at [facility], since that is where the patient gets the majority of his specialty care, and discussed the case with Dr. Ramsay, who was on-call. He did review the patient's records and it appears the patient's resident care associate has ordered renal ultrasound and renal studies, but these have not been done yet. Dr. Ramsay stated that it is highly unlikely that the patient would require dialysis as an inpatient, given his normal urinalysis and the fact that he is making urine. He stated that although they would be willing to accept him in transfer, the current transfer situation is very difficult at [facility], as it is [facility], and as such, that a reasonable approach would be to admit the patient here, for fluid hydration and serial labs, with plan to refer to nephrology as an outpatient and complete the ultrasound and renal studies that have already been ordered. The patient was agreeable to this plan. - HOSPITAL COURSE Hospital Course: (1) Acute on chronic kidney disease Probably multifactorial, from volume depletion / dehydration and diabetic nephropathy. His renal sonogram was done here and showed no obstruction, and an atrophic L kidney. He was put on IV fluids. His Lisinopril was put on hold. In the first 24 hours of this hospital stay, he was oliguric, he made only 600 cc of urine. On the next day, he became anuric, despite being 8L pos in fluid balance. The creatinine increased to 6.0. I had >10 phone calls with his insurance plan, [employer]. There were no beds available at [facility]. He was accepted in transfer to [facility] in [place], and was transferred there on monitor technician, in stable condition. (2) Hyperkalemia His potassium sindy to 5.2. He received a dose of Lokelma. His EKG was done then (which I interpreted) and showed NSR, rate 72, poor R wave progression and was similar to EKG done here 10/21/2018. He was placed on telemetry and had no dysrhythmias while here. (3) Acute diverticulitis There was a h/o same Dx a few years ago. He was placed on a clear liquid diet and iv fluids, prn antemetics and empiric iv Rocephin + iv Flagyl. He was still nauseated at the time of transfer. (4) Anemia His admission hemoglobin was 9.9. His iron studies showed low iron and he received 1 dose of IV iron dextran. He had a borderline-low B12 level and a normal folate level. He did not receive any blood transfusions while here. Hemoglobin was 8.9 at the time of transfer. (5) DM Type 2 The patient was ordered a clear liquid diet, but not carb controlled. He had fingerstick checks, sliding scale insulin and hypoglycemia protocol ordered. His A1c came back at 5.8 indicating excessively tight glu control on his home insul in doses. (6) Hypoglycemia During the patient's first night here he had 4 episodes of hypoglycemia, felt shaky and weak. Glucose levels were as low as 82, 97, 78 and 81 for which he received apple juice and Jell-O. Telemedicine admitting doctor had ordered iv NS. I changed his IV from NS to D5 NS, and he had no further hypoglycemic episodes. (7) PVD Patient was kept on his usual cardiovascular medications while here. (8) HTN Patient's BP ran 130-160 systolic. He was put on his home doses of Carvedilol and Hydralazine, but Lisinopril was put on hold, and his Amlodipine had not yet been resumed. (9) COPD without exacerbation The patient used Ventolin at home. He did require DuoNeb given prn, while here. - ALLERGIES Allergies/Adverse Reactions: Allergies Allergy/AdvReac Type Severity Reaction Status Date / Time Sulfa (Sulfonamide Allergy Itching Verified 09/20/23 17:20 Antibiotics) cyclobenzaprine AdvReac Unknown Verified 09/20/23 17:20 Bwvvvab-RXG-FyK Reductase AdvReac Cramps Verified 09/20/23 17:20 Inhibitor [Dkslxof-Wid-Nxe Reductase Inhibitor] - MEDICATIONS Home Medications: Ambulatory Orders Medication Instructions Recorded Confirmed Aller-Dorita 1 tab PO 1200 12/02/21 09/21/23 Lisinopril [Zestril] 40 mg PO DAILY 12/02/21 09/21/23 [place]-3S/Dha/Epa/Fish Oil [Fish 1 cap PO DAILY 12/02/21 09/21/23 Oil 1,200 mg Softgel] Rosuvastatin Calcium [Crestor] 20 mg PO HS 12/02/21 09/21/23 Albuterol Sulf [Ventolin Hfa 2 puffs INH Q4HR PRN 09/21/23 09/21/23 Inhaler] Aspirin [Aspirin EC] 81 mg PO 1200 09/21/23 09/21/23 Hydralazine HCl 50 mg PO BID 09/21/23 09/21/23 Insulin Glargine [Lantus Solostar] 22 units SUBQ HS 09/21/23 09/21/23 Insulin Lispro [Humalog Kwikpen 0 - 30 units SUBQ TIDWM 09/21/23 09/21/23 U-100] Tart Gresham Extract 1 tab PO HS 09/21/23 09/21/23 Ubidecarenone [Coenzyme Q10] 200 mg PO HS 09/21/23 09/21/23 carvediloL [Coreg] 12.5 mg PO BIDWM 09/21/23 09/21/23 dilTIAZem HCL [Diltiazem 24Hr ER] 120 mg PO DAILY 09/21/23 09/21/23 hydrALAZINE [Apresoline] 25 mg PO BID PRN 09/21/23 09/21/23 - PHYSICAL EXAM AT DISCHARGE General Appearance: positive: Alert, Mild distress (from nausea) Eyes Bilateral: positive: Normal inspection, EOMI ENT: positive: ENT inspection nml, No signs of dehydration Neck: positive: Nml inspection, No JVD Respiratory: positive: Wheezes (Scattered apical wheezes, good air mvm) Cardiovascular: positive: Regular rate & rhythm, No murmur Abdomen: positive: Non-tender, Nml bowel sounds, No distention Skin: positive: Warm, Dry Extremities: positive: Non-tender, No pedal edema Neurologic/Psychiatric: positive: Oriented x3, CN's nml (2-12), Motor nml - LABS Result Diagrams: 09/22/23 05:40 09/22/23 05:40 - DIAGNOSTIC IMAGING Diagnostic Imaging Results: Final report reviewed - TIME SPENT Time Spent in Discharge (Minutes): 45
--- NOTE | 2023-09-22 15:48 | Discharge Plan ---
Discharge Plan Problem Reviewed?: Yes Disposition: 02 Transfer Acute Care Hosp Condition: Serious No Smoking: If you smoke, Please STOP! Call for help.
[2023-09-22 16:03] VITALS: BP 143/61; O2SAT 95
[2023-09-22] MEDS ORDERED: carvediloL 12.5 MG TABLET PO SCH (17:00)
== END 2023-09-22 19:40 | disposition short-term general hospital (02) | DRG 683 ==
LOC: ED 17:03 → MS3 09-21 01:47 → OBSVTOIN 09-21 09:01
PROVIDERS: ADMIT Student in an Organized Health Care Education/Training Program; ATTEND Internal Medicine
DX: I12.9 Hypertensive chronic kidney disease with stage 1 through stage 4 chronic kidney disease, or unspecified chronic kidney disease (principal); K57.32 Diverticulitis of large intestine without perforation or abscess without bleeding; N17.9 Acute kidney failure, unspecified; E11.22 Type 2 diabetes mellitus with diabetic chronic kidney disease; N18.9 Chronic kidney disease, unspecified; Z87.891 Personal history of nicotine dependence; Z79.4 Long term (current) use of insulin; Z79.84 Long term (current) use of oral hypoglycemic drugs; E87.5 Hyperkalemia; E78.00 Pure hypercholesterolemia, unspecified; D64.9 Anemia, unspecified; E11.649 Type 2 diabetes mellitus with hypoglycemia without coma; E11.51 Type 2 diabetes mellitus with diabetic peripheral angiopathy without gangrene; J44.9 Chronic obstructive pulmonary disease, unspecified; G47.30 Sleep apnea, unspecified; E86.0 Dehydration; I25.10 Atherosclerotic heart disease of native coronary artery without angina pectoris; E11.21 Type 2 diabetes mellitus with diabetic nephropathy
CPT/HCPCS: 36415; 76770; 80048; 80053; 81003; 82272; 82570; 82607; 82746; 83036; 83540; 83690; 84156; 84300; 84466; 85025; 93005; 94640; 96361; 96365; 96366; 96372; 96375; 96376; 99285; A9270; G0378; J1750; 81001; 87086

== ENCOUNTER 2023-10-29 18:24 | Emergency (ER) | payer MEDICARE, OTHER ==
[2023-10-29 20:22] LABS: BASOPHILS % (AUTO) 0.3 %; EOSINOPHILS # (AUTO) 0.1 10^3/uL (0.0-0.7); EOSINOPHILS % (AUTO) 0.7 %; HGB - HEMOGLOBIN 7.6 g/dL (14.0-18.0); LYMPHOCYTES # (AUTO) 0.9 10^3/uL (1.5-3.5); LYMPHOCYTES % (AUTO) 7.5 %; MEAN CORPUSCULAR HEMOGLOBIN 28.6 pg (27.0-31.0); MEAN CORPUSCULAR HGB CONC 31.7 g/dL (32.0-36.0); MEAN CORPUSCULAR VOLUME 90.2 fL (80.0-94.0); MEAN PLATELET VOLUME 8.8 fL (7.4-11.4); MONOCYTES % (AUTO) 7.9 %; NEUTROPHILS % (AUTO) 82.9 %; NRBC ABSOLUTE COUNT (AUTO) 0.02 x10^3/uL; NUCLEATED RED BLOOD CELLS AUTO 0.2 /100WBC; PLT - PLATELET COUNT 242 10^3/uL (130-450); RED BLOOD COUNT 2.66 10^6/uL (4.70-6.10); RED CELL DISTRIBUTION WIDTH 14.3 % (12.0-15.0); WHITE BLOOD COUNT 12.1 x10^3/uL (4.8-10.8)
--- NOTE | 2023-10-29 20:24 | ED Physician Documentation ---
PD HPI DYSPNEA - Stated complaint Stated Complaint: SOA/BLOATING - Chief complaint Chief Complaint: General - History obtained from History obtained from: Patient - Additional information Additional information: Patient complains of shortness of breath. He says this started last night without specific inciting event. The dyspnea is worse with exertion, lying supine. No ameliorating factors. He denies chest pain, fevers, cough (patient says "I have to clear my throat now and then because of sinuses", but otherwise denies cough). Patient uses oxygen at home, 4 L nasal cannula per minute. Patient was discharged approximately week and a half ago from [facility] after spending approximately 3 weeks in their facility for what he says are the same symptoms. He says that prior to being transferred from [facility] ED to [facility] 3 weeks ago, it was noted that his kidneys were functioning poorly. During his stay at [facility], he began hemodialysis for the first time and has continued to have Sunday, Sunday, Sunday hemodialysis in the outpatient setting since being discharged approximately 1 to 2 weeks ago. He had hemodialysis earlier today, but continues to feel increasing shortness of breath and dyspnea on exertion. Review of Systems Constitutional: denies: Fever, Chills, Sweats Cardiac: reports: Reviewed and negative Respiratory: reports: Dyspnea. denies: Cough, Hemoptysis, Wheezing GI: reports: Abdominal Swelling. denies: Abdominal Pain, Nausea, Vomiting PD PAST MEDICAL HISTORY - Past Medical History Past Medical History: Yes Cardiovascular: Hypertension, High cholesterol Respiratory: Sleep apnea, Other Endocrine/Autoimmune: Type 2 diabetes GI: GERD, Ulcers, Other : Renal insuffiency HEENT: Glaucoma Psych: None Musculoskeletal: Osteoarthritis, Other Derm: None - Past Surgical History Past Surgical History: Yes Ortho: Other Cardiovascular: Other HEENT: Rhinoplasty - Present Medications Home Medications: Ambulatory Orders Medication Instructions Recorded Confirmed Aller-Dorita 1 tab PO 1200 12/02/21 09/21/23 [place]-3S/Dha/Epa/Fish Oil [Fish 1 cap PO DAILY 12/02/21 09/21/23 Oil 1,200 mg Softgel] Rosuvastatin Calcium [Crestor] 20 mg PO HS 12/02/21 10/29/23 Albuterol Sulf [Ventolin Hfa 2 puffs INH Q4HR PRN 09/21/23 09/21/23 Inhaler] Aspirin [Aspirin EC] 81 mg PO 1200 09/21/23 09/21/23 Tart Gresham Extract 1 tab PO HS 09/21/23 09/21/23 Ubidecarenone [Coenzyme Q10] 200 mg PO HS 09/21/23 09/21/23 carvediloL [Coreg] 25 mg PO BIDWM 09/21/23 09/21/23 hydrALAZINE [Apresoline] 100 mg PO DAILY 09/21/23 09/21/23 Cholecalciferol [Vitamin D3] 2,000 unit ORAL DAILY 10/29/23 10/29/23 Fluticasone [Flonase] 120 sprays JANIE 10/29/23 10/29/23 NIFEdipine [Procardia Xl] 90 mg PO DAILY 10/29/23 10/29/23 Sevelamer Carbonate [Renvela] 800 mg PO DAILY 10/29/23 10/29/23 Terazosin [Hytrin] 1 mg PO DAILY 10/29/23 10/29/23 - Allergies Allergies/Adverse Reactions: Allergies Allergy/AdvReac Type Severity Reaction Status Date / Time amlodipine Allergy Edema Verified 10/29/23 18:54 amoxicillin Allergy Edema Verified 10/29/23 18:54 clavulanic acid Allergy Edema Verified 10/29/23 18:54 colchicine Allergy Edema Verified 10/29/23 18:54 Sulfa (Sulfonamide Allergy Itching Verified 10/29/23 18:30 Antibiotics) cyclobenzaprine AdvReac Unknown Verified 10/29/23 18:30 simvastatin AdvReac Unknown Verified 10/29/23 18:54 Zsqgddn-FBJ-KqU Reductase AdvReac Cramps Verified 10/29/23 18:30 Inhibitor [Zvwslwh-Ufc-Jzx Reductase Inhibitor] - Social History Does the pt smoke?: Yes Smoking Status: Former smoker Does the pt drink ETOH?: No Does the pt have substance abuse?: No - Immunizations Immunizations are current?: Yes PD ED PE NORMAL - Vitals Vital signs reviewed: Yes - General General: Alert and oriented X 3, No acute distress, Well developed/nourished - Neck Neck: Supple, no meningeal sign - Cardiac Cardiac: RRR, No murmur - Respiratory Respiratory: No respiratory distress - Abdomen Abdomen: Soft, Non tender - Derm Derm: Normal color, Warm and dry - Extremities Extremities: No edema - Neuro Neuro: Alert and oriented X 3, shot lighter 2-12 intact Eye Opening: Spontaneous Motor: Obeys Commands Verbal: Oriented GCS Score: 15 PD ED PE EXPANDED - Respiratory Respiratory: Rales (bibasilar rales with course rales extending from base to mid-lung field on left side), Decreased breath sounds (bibasilar decreased breath sounds) Results - Vitals Vitals: Vital Signs - 24 hr 10/29/23 10/29/23 10/29/23 18:30 19:00 20:03 Temperature 37.2 C Heart Rate 73 73 72 Respiratory 16 20 20 Rate Blood Pressure 140/100 H 118/60 108/61 O2 Saturation 87 L 96 96 If not protocol 2 : Oxygen Flow, liters/minute 10/29/23 10/29/23 10/30/23 21:17 22:00 00:00 Temperature Heart Rate 79 79 71 Respiratory 27 H 19 21 Rate Blood Pressure 130/54 L 116/71 119/52 L O2 Saturation 93 92 95 If not protocol 3 3 3 : Oxygen Flow, liters/minute 10/30/23 10/30/23 10/30/23 02:00 04:00 05:23 Temperature Heart Rate 72 72 71 Respiratory 20 18 23 Rate Blood Pressure 119/50 L 118/51 L 117/54 L O2 Saturation 95 94 96 If not protocol 3 4 4 : Oxygen Flow, liters/minute Oxygen O2 Source Nasal cannula - EKG (time done) No standard instances EKG releavant findings:: EKG personally interpreted by author of this note. Relevant findings are: Rate: Rate (enter#) (76) Rhythm: NSR Paton: LAD, Anterior hemiblock QRS: Normal Ischemia: Normal ST segments - Labs Labs: Microbiology 10/29/23 22:15 Occult Blood - Final Stool Laboratory Tests 10/29/23 10/29/23 10/29/23 20:17 20:17 20:17 WBC 12.1 H RBC 2.66 L Hgb 7.6 L Hct 24.0 L MCV 90.2 MCH 28.6 MCHC 31.7 L RDW 14.3 Plt Count 242 MPV 8.8 Neut # (Auto) 10.0 H Lymph # (Auto) 0.9 L Hitchcock # (Auto) 1.0 Eos # (Auto) 0.1 Baso # (Auto) 0.0 Absolute Nucleated RBC 0.02 Nucleated RBC % 0.2 Sodium 131 L Potassium 4.1 Chloride 92 L Carbon Dioxide 26 Anion Gap 13.0 BUN 22 H Creatinine 3.1 H Estimated GFR (MDRD) 20 L Glucose 152 H Calcium 9.1 Total Bilirubin 1.0 AST 16 ALT 8 L Alkaline Phosphatase 59 Troponin I High Sens 42.5 H* B-Natriuretic Peptide 1458 H Total Protein 7.4 Albumin 4.0 Globulin 3.4 Albumin/Globulin Ratio 1.2 Lipase 59 Nasal Adenovirus (PCR) Nasal B. parapertussis DNA (PCR) Nasal Coronavir 229E PCR Nasal Coronavir HKU1 PCR Nasal Coronavir NL63 PCR Nasal Coronavir OC43 PCR Nasal Enterovir/Rhinovir PCR Nasal Influenza B PCR Nasal Influenza A PCR Nasal Parainfluen 1 PCR Nasal Parainfluen 2 PCR Nasal Parainfluen 3 PCR Nasal Parainfluen 4 PCR Nasal RSV (PCR) Nasal B.pertussis DNA PCR Nasal C.pneumoniae (PCR) Janie Human Metapneumo PCR Nasal M.pneumoniae (PCR) Nasal SARS-CoV-2 (PCR) 10/29/23 21:53 WBC RBC Hgb Hct MCV MCH MCHC RDW Plt Count MPV Neut # (Auto) Lymph # (Auto) Hitchcock # (Auto) Eos # (Auto) Baso # (Auto) Absolute Nucleated RBC Nucleated RBC % Sodium Potassium Chloride Carbon Dioxide Anion Gap BUN Creatinine Estimated GFR (MDRD) Glucose Calcium Total Bilirubin AST ALT Alkaline Phosphatase Troponin I High Sens B-Natriuretic Peptide Total Protein Albumin Globulin Albumin/Globulin Ratio Lipase Nasal Adenovirus (PCR) NOT DETECTED Nasal B. parapertussis DNA (PCR) NOT DETECTED Nasal Coronavir 229E PCR NOT DETECTED Nasal Coronavir HKU1 PCR NOT DETECTED Nasal Coronavir NL63 PCR NOT DETECTED Nasal Coronavir OC43 PCR NOT DETECTED Nasal Enterovir/Rhinovir PCR NOT DETECTED Nasal Influenza B PCR NOT DETECTED Nasal Influenza A PCR NOT DETECTED Nasal Parainfluen 1 PCR NOT DETECTED Nasal Parainfluen 2 PCR NOT DETECTED Nasal Parainfluen 3 PCR NOT DETECTED Nasal Parainfluen 4 PCR NOT DETECTED Nasal RSV (PCR) NOT DETECTED Nasal B.pertussis DNA PCR NOT DETECTED Nasal C.pneumoniae (PCR) NOT DETECTED Janie Human Metapneumo PCR NOT DETECTED Nasal M.pneumoniae (PCR) NOT DETECTED Nasal SARS-CoV-2 (PCR) NOT DETECTED - Rads (name of study) chest xray Relevant Findings:: Prelim report reviewed, EMP independent interpretation of test (I reviewed these images and my interpretation is: significantly increased interstitial markings bilaterally, notably greater on left with possible areas of consolidation on left; cannot exclude infiltrate on left), See rad report PD Medical Decision Making - ED course Complexity details: reviewed results, re-evaluated patient, considered differential, d/w patient ED course: I have reviewed the inpatient initial intake/ED notes from when the patient was at [facility] ED on 09/20. At that time, he was admitted for diverticulitis noted on a non-contrast CT scan. His kidney tests were significantly above normal range and this was why the scan was done without contrast. During his inpatient stay, the patient became anuric. He was transferred on 09/[address] [facility] in [place]. The patient's cake decorator, correspondence section supervisor, and vascular surgeon are all out of [facility]). There was an attempt to transfer the patient to [place] when he was inpatient in August but they had no beds available. Patient's BNP is over 1400, chest x-ray is concerning for pulmonary edema; there are significantly more and denser markings in the left hemithorax and the chest x-ray and underlying infectious process versus pneumonia cannot be excluded. He is given 1 gram IV rocephin. An inche of NTG paste was placed on ACW early in stay. Patient had lower-mid 90s pulse ox on 4 liters NC but rapidly desaturates with simple movements in the bed; specifically when pulling his pants down (in preparation for rectal exam), he becomes hypoxic to 86-89% and noticeably dyspneic to the point of needing to stop to catch his breath. His pulse ox gradually recovers to lower 90s but when he then turns over on his side he again becomes dyspneic and desaturates to as low as 86%. At this time, the concern is increasingly that he is fluid overloaded with pulmonary edema; as noted above, pneumonia may be cause and/or contributing factor. He clearly needs admission to the hospital, but, without nephrology services at [facility], it would be best to transfer to an appropriate facility with appropriate specialists including nephrology services. Though he will not need his next scheduled hemodialysis session until Sunday, it is possible he will need to be dialyzed sooner than that if pulmonary edema and fluid overload becomes the predominant suspicion regarding the etiology of his signs and symptoms. I was put in touch with the commercial coordinator for [facility] in [place]. She tells me that she spoke with the hospitalist at [facility] and their recommendation was that I contact the patient's nephrology group. I then spoke with Dr. Chambers (in same nephrology group as patient's industrial sociologist (Dr. Saba Hernandez). She recommends 80mg IV lasix for diuresis. Unfortunately, no beds are available at [facility]. I then recontacted [facility] / [place] and spoke with their industrial sociologist on-call (Dr. De Oliveira) who agrees patient is appropriate for transfer to their facility, hospitalist service. I then spoke with Dr. Tran (hospitalist at [facility]) who accepts patient for transfer. Departure - Departure Disposition: 02 Transfer Acute Care Hosp Clinical Impression: Pulmonary edema, Anemia, GI bleed, Hypoxia Condition: Stable Forms: PCP List Discharge Date/Time: 10/30/23 05:00
[2023-10-29 20:38] LABS: ALBUMIN/GLOBULIN RATIO 1.2 (1.0-2.2); CALCIUM 9.1 mg/dL (8.5-10.3); CREATININE 3.1 mg/dL (0.6-1.3); POTASSIUM 4.1 mmol/L (3.5-4.5); TOTAL PROTEIN 7.4 g/dL (6.4-8.9)
[2023-10-29 20:49] LABS: TROPONIN I HIGH SENSITIVITY 42.5 ng/L (2.3-19.7)
[2023-10-29] MEDS: NITROGLYCERIN 2% PASTE TOP STA (21:16)
--- NOTE | 2023-10-29 21:18 | XRAY Report ---
PROCEDURE: Chest 1V INDICATIONS: Chest pain TECHNIQUE: One view of the chest was acquired. COMPARISON: 08/23/2023 FINDINGS: Surgical changes and devices: Right IJ dialysis catheter. Overlying monitoring wires. Lungs and pleura: Diffuse hazy opacity in the left lung with patchy more confluent opacity in the la teral region. Small left effusion. Diffuse perihilar interstitial thickening in the right. Small righ t effusion. Mediastinum: Mild cardiomegaly. Normal aortic contour. Bones and chest wall: No suspicious bony lesions. Overlying soft tissues appear unremarkable. IMPRESSION: Diffuse hazy left lung opacity with more confluent left midlung opacity suggestive of pneumonia or ed andre. Interstitial thickening on the right and bilateral pleural effusions also suggest edema/volume overlo ad. Reviewed by: Siri Lora MD on 10/29/2023 9:17 PM PST Approved by: Siri Lora MD on 10/29/2023 9:17 PM PST Station ID: [id number]
[2023-10-29 23:05] LABS: B. PARAPERTUSSIS- RESP PCR PAN NOT DETECTED; B. PERTUSSIS- RESP PCR PANEL NOT DETECTED; C. PNEUMONIAE- RESP PCR PANEL NOT DETECTED; CORONAVIRUS 229E-RESP PCR NOT DETECTED; CORONAVIRUS HKU1-RESP PCR NOT DETECTED; CORONAVIRUS NL63-RESP PCR NOT DETECTED; CORONAVIRUS OC43-RESP PCR NOT DETECTED; HUMAN METAPNEUMOVIRUS NOT DETECTED; INFLUENZA A- RESP PCR PANEL NOT DETECTED; INFLUENZA B - RESP PCR PANEL NOT DETECTED; M. PNEUMONIAE- RESP PCR PANEL NOT DETECTED; PARAINFLUENZA VIRUS 1 NOT DETECTED; PARAINFLUENZA VIRUS 2 NOT DETECTED; PARAINFLUENZA VIRUS 3 NOT DETECTED; PARAINFLUENZA VIRUS 4 NOT DETECTED; RHINOVIRUS/ENTEROVIRUS NOT DETECTED; RSV- RESP PCR PANEL NOT DETECTED; SARS-CoV-2 -RESP PCR PANEL NOT DETECTED
[2023-10-30] MEDS ORDERED: cefTRIAXone 1 GM VIAL ONE (00:13)
[2023-10-30] MEDS: cefTRIAXone 1 GM in SODIUM CHLORIDE 0.9% MINIBAG 100 ML IV STA (00:17)
[2023-10-30] MEDS: FUROSEMIDE 40 MG/4 ML VIAL IVP STA ×2 (01:14→01:20)
[2023-10-30 05:27] VITALS: BP 117/54; O2SAT 96
== END 2023-10-30 05:00 | disposition short-term general hospital (02) ==
LOC: ED 18:24
DX: K92.2 Gastrointestinal hemorrhage, unspecified (principal); J81.1 Chronic pulmonary edema; R09.02 Hypoxemia; I12.0 Hypertensive chronic kidney disease with stage 5 chronic kidney disease or end stage renal disease; E11.22 Type 2 diabetes mellitus with diabetic chronic kidney disease; N18.6 End stage renal disease; D63.1 Anemia in chronic kidney disease; Z99.2 Dependence on renal dialysis; Z87.891 Personal history of nicotine dependence; E78.00 Pure hypercholesterolemia, unspecified; Z79.899 Other long term (current) drug therapy; Z79.82 Long term (current) use of aspirin; Z99.81 Dependence on supplemental oxygen
CPT/HCPCS: 36415; 80053; 82272; 83690; 83880; 84484; 85025; 87633; 93005; 96365; 96375; 99285

== ENCOUNTER 2023-11-15 08:00 | Outpatient (CLI) | payer OTHER ==
[2023-11-15 16:30] LABS: FECAL OCCULT BLOOD (FIT) POSITIVE (NEGATIVE)
== END 2023-11-15 23:59 | disposition home or self-care (01) ==
LOC: LAB.R 08:00
PROVIDERS: ATTEND Physician Assistant Medical
DX: K92.1 Melena (principal)
CPT/HCPCS: 82274

== ENCOUNTER 2023-12-03 08:00 | Outpatient (CLI) | payer OTHER ==
[2023-12-03 12:40] LABS: CREATININE,URINE 198.6 mg/dL
== END 2023-12-03 23:59 | disposition home or self-care (01) ==
LOC: LAB.R 08:00
PROVIDERS: ATTEND Internal Medicine Nephrology
DX: N05.9 Unspecified nephritic syndrome with unspecified morphologic changes (principal)
CPT/HCPCS: 81599; 82570

== ENCOUNTER 2023-12-17 09:23 | Outpatient (CLI) | payer OTHER ==
[2023-12-17 09:52] LABS: CALCIUM 9.7 mg/dL (8.5-10.3); CREATININE 4.9 mg/dL (0.6-1.3)
[2023-12-17 10:03] LABS: ESTIMATED AVERAGE GLUCOSE 88 mg/dL (70-100); HEMOGLOBIN A1c% 4.7 % (4.27-6.07)
== END 2023-12-17 09:24 | disposition home or self-care (01) ==
LOC: LAB 09:23
PROVIDERS: ATTEND Physician Assistant Medical
DX: E11.9 Type 2 diabetes mellitus without complications (principal)
CPT/HCPCS: 36415; 80048; 83036

== ENCOUNTER 2024-01-17 08:00 | Outpatient (CLI) | payer OTHER ==
[2024-01-17 18:13] LABS: BILIRUBIN,URINE SMALL (NEGATIVE); GLUCOSE, URINE (UA) NEGATIVE (NEGATIVE); KETONES,URINE (UA) NEGATIVE (NEGATIVE); LEUKOCYTE ESTERASE, URINE NEGATIVE (NEGATIVE); NITRITE,URINE NEGATIVE (NEGATIVE); OCCULT BLOOD,URINE NEGATIVE (NEGATIVE); PH,URINE 5.5 PH (5.0-7.5); PROTEIN,URINE 30 mg/dL (NEGATIVE); UROBILINOGEN,URINE 0.2 (NORMAL) E.U./dL (NORMAL)
[2024-01-17 18:15] LABS: CLARITY,URINE HAZY (CLEAR)
[2024-01-17 18:24] LABS: AMORPHOUS SEDIMENT,UR Rare /LPF; BACTERIA,URINE Rare /HPF (None Seen); EPITHELIAL CELLS,UR FEW Transitional /HPF (<= Few); RBC,URINE 0-5 /HPF (0-5); SQUAMOUS EPITHELIAL CELL,UR NONE SEEN (<= Few)
== END 2024-01-17 23:59 | disposition home or self-care (01) ==
LOC: LAB 08:00
PROVIDERS: ATTEND Physician Assistant Medical
DX: N40.0 Benign prostatic hyperplasia without lower urinary tract symptoms (principal)
CPT/HCPCS: 81001; 87086

== ENCOUNTER 2024-01-22 12:36 | Outpatient (CLI) | payer OTHER ==
--- NOTE | 2024-01-22 13:24 | Sleep Patient Instructions ---
Sleep Center Visit Summary - Patient Visit Information Reason for Visit: Initial consult for evaluation of sleep disordered breathing and other sleep issues. - Patient Instructions Instructions Attached: Sleep Study, Sleep Study Home Monitor Additional Instructions: You will be completing a sleep study, either an in-lab polysomnography (PSG) or home sleep study (HST). You will follow-up in the sleep care office after the sleep study is completed to hear the results and talk about therapy, if needed. You will be called by our office staff to schedule this appointment, but you may contact us with any questions. - Clinic Information Contact: [facility] [address] [place] [id number] [email or web address] T: [phone]
--- NOTE | 2024-01-22 13:29 | SLEEP CARE CONSULTATION ---
Information from patient questionnaire entered by Daria Arechiga. I have reviewed and concur with the information entered by Daria Arechiga. This document represents the service I personally performed and the decisions made by me, Angélica Merchant ARNP. History of Present Illness Service Date and Time: 01/22/2024 1236 Reason for Visit: New patient, Previously diagnosed sleep apnea Chief Complaint: reports: Fatigue, Frequent awakenings at night Date of Onset: freq wake ups is recent Usual bedtime: 2300 Time it takes to fall asleep: MIN Snores at night: Yes Observed to quit breathing while asleep: No Sleeps alone due to snoring: Yes Number of times waking at night: 2-3 Reasons for waking at night: reports: Bathroom, Other (UNKNOWN) Toss, Turn, or Twitch while sleeping: Yes Recalls having dreams: Yes Usually gets out of bed at: 8-9 Feels refreshed in the morning: Yes Morning headache: Yes Sleepy or fatigued during the day: No Ever fallen asleep while driving: Yes Takes day naps: No Dreams during day naps: Yes Prior sleep studies: Yes Additional HPI information: I had the pleasure of seeing MORIS FABIAN today regarding the possibility of him having a sleep disorder. His current complaints are fatigue and frequent night awakenings. He has a previous diagnosis of sleep apnea in 2004 at [facility] but says it was so mild that he did not need treatment. He says it does not take much activity to feel fatigued. He uses oxygen during day as needed to keep oxygen up at 90% or more. He was in the hospital for acute kidney injury and is on dialysis 3 times a week. The patient tells me that he normally goes to bed around 11 pm, and it takes him approximately few minutes to fall asleep. He has been told that he snores loudly and irregularly at night. He has not been observed to stop breathing in his sleep. He can recall waking up on the average of 2-3 times during the night. Most of the time he wakes up because of bathroom and unknown reasons. He has occasionally awakened for his own snoring. He says he has nocturnal oxygen, 2 L/min, that he wears at night. They are suppose to be doing a pulse oximetry test to see if he can come off oxygen, but needs to have a sinus issue clear up first. There is not a lot of tossing and turning in his sleep. Generally he can recall having dreams. He usually wakes up at 7-9 AM and most of the times feels refreshed. He usually does not have a morning headache. During the day he complains of feeling sleepy and fatigued. He has never fallen asleep while driving nor has any accident due to sleepiness. He usually does not take naps during the day but this has only been happening since August. If he naps, upon falling asleep during the day he denies having vivid dreams. There is no somniloquy (sleep talking) but no somnambulism (sleep walking). He has never experienced sleep paralysis, cataplexy, or symptoms of restless leg syndrome. He denies having impaired concentration during the day. - Parasomnia Symptoms Ever been unable to move upon waking from sleep: No Walks in sleep: No Talks in sleep: Yes Ever acted out dreams in sleep: No Ever felt weak in the knees when startled or emotional: No Bothered by creepy, crawly, restless sensations in legs: No Problems with memory or concentration: No Subjective Initial [place] Sleepiness Scale score: 5 (01/17/24) Past Medical History Past Medical History: reports: Hypertension, Diabetes, Gout, Anemia, Other (Acute kidney injury) Social History The patient's occupation is a RE. Patient is and lives in [place]. Have you smoked in the past 12 months: No Cigarettes per day (20/pack): 20 Years of smokin Quit date: 2000 Smoking Pack Years: 35.0 Alcohol use: Yes Alcohol amount and frequency: 1-2PER YR Caffeine use: Yes Caffeine amount and frequency: 2CUPS PER DAY Family History Family history of sleep disordered breathing: No Allergies and Home Medications Known drug allergies: Yes (CYCLOBENZAPRINE, AUGMENTIN, ZOCOR, FLEXRIL,SULFA, AMLODIPINE,CLAVULANICACID) Drug allergies reviewed: Yes Home medication list reviewed: Yes (as listed) Allergy and home medication list: Allergies amlodipine Allergy (Verified 01/17/24 15:29) Edema amoxicillin Allergy (Verified 01/17/24 15:29) Edema clavulanic acid Allergy (Verified 04/25/24 15:29) Edema colchicine Allergy (Verified 01/17/24 15:29) Edema Sulfa (Sulfonamide Antibiotics) Allergy (Verified 01/17/24 15:29) Itching cyclobenzaprine Adverse Reaction (Verified 01/17/24 15:29) Unknown simvastatin Adverse Reaction (Verified 01/17/24 15:29) Unknown Yxlinge-QIX-ImD Reductase Inhibitor [Kxkzwuj-Wxt-Tif Reductase Inhibitor] Adverse Reaction (Verified 01/17/24 15:29) Cramps Home Medications Medication Instructions Recorded Confirmed Last Taken Type Doyle-3S/Dha/Epa/Fish Oil [Fish 1 cap PO DAILY 12/02/21 01/22/24 Unknown History Oil 1,200 mg Softgel] Rosuvastatin Calcium [Crestor] 20 mg PO HS 12/02/21 01/22/24 Unknown History Albuterol Sulf [Ventolin Hfa 2 puffs INH Q4HR PRN 09/21/23 01/22/24 Unknown History Inhaler] Tart Gresham Extract 1 tab PO HS 09/21/23 01/22/24 Unknown History Ubidecarenone [Coenzyme Q10] 200 mg PO HS 09/21/23 01/22/24 Unknown History carvediloL [Coreg] 25 mg PO BIDWM 09/21/23 01/22/24 Unknown History hydrALAZINE [Apresoline] 100 mg PO BID 09/21/23 01/22/24 Unknown History Cholecalciferol [Vitamin D3] 2,000 unit ORAL DAILY 10/29/23 01/22/24 Unknown History Fluticasone [Flonase] 120 sprays JANIE 10/29/23 10/29/23 Unknown History NIFEdipine [Procardia Xl] 90 mg PO DAILY 10/29/23 01/22/24 Unknown History Terazosin [Hytrin] 1 mg PO DAILY 10/29/23 01/22/24 Unknown History Ipratropium See Rx Instructions .ROUTE .COMPLEX 01/22/24 01/22/24 Unknown History Review of Systems Weight loss over past 5 years: 50 Cardiovascular: reports: high blood pressure, leg or foot swelling Respiratory: reports: shortness of breath Gastrointestinal: reports: heartburn, difficulty swallowing Urinary: reports: incontinence Psychiatric: reports: claustrophobia Ear/Nose/Throat: reports: sinus problems, nose bleeds, dry mouth/throat, tonsi llectomy Endocrine: reports: history of goiter, too hot or cold Musculoskeletal: reports: joint pain, back pain Physical Exam Vital signs obtained and entered by: ANGÉLICA PARRA Blood Pressure: 150/54 Cuff size: regular (right arm) Heart Rate: 66 O2 Saturation: 92 Height: 5 ft 10 in Weight: 172 lb 6.4 oz Body Mass Index: 24.7 BMI Classification: Normal Neck circumference: 15.5 (inches) Mouth and throat: narrow oropharynx Soft palate: long Hard palate: normal Uvula: normal Uvula visualization: 50% Mallampati Class II Tongue: normal in size Tonsils: small Neck: normal w/o lymphadenopathy or thyromegaly Heart: regular rate and rhythm, murmur Lungs: clear bilaterally Impression and Plan 1. Suspected Obstructive Sleep Apnea-Hypopnea Syndrome, as previously diagnosed and as suggested by a history of loud and irregular snoring, frequent awakening during the night and unrefreshed sleep. Narrow oropharynx and obesity are common predisposing factors for obstructive sleep apnea-hypopnea syndrome. I recommend proceeding to polysomnography to confirm the diagnosis and to assess severity. If the patient has significant sleep disordered breathing, a manual CPAP titration study will also be performed to find the optimal treatment pressure. I informed the patient of what the sleep studies involve and after some discussion, obtained agreement to proceed. The pathophysiology of obstructive sleep apnea-hypopnea syndrome was discussed with the patient and health risks of cardiovascular and cerebrovascular disease if not treated. Risks of drowsy driving discussed in detail and patient advised to avoid long distance driving and to machine assembler for puller over at the first sign of drowsiness. Patient agreed to plan. * Schedule polysomnography. * Avoid long distance driving or driving when feeling sleepy. * Avoid alcohol, sedative and muscle relaxant around bedtime. * Review instructions provided by trained office staff on how to prepare for the sleep study. * Return for follow-up after sleep study completed. Follow up with Sleep Care in: other (after sleep study for results review) Plan: PSG/HST Visit Type: In Office Time Spent with Patient (minutes): 35 Provider Statement: I spent 100% of the Face to Face Visit with the patient with greater than 50% spent counseling the patient and coordination of care.
[2024-01-22 13:34] VITALS: BP 150/54; O2SAT 92
== END 2024-01-22 12:37 | disposition home or self-care (01) ==
LOC: SC 12:36
PROVIDERS: ATTEND Nurse Practitioner Family
DX: G47.33 Obstructive sleep apnea (adult) (pediatric) (principal)
CPT/HCPCS: 99203; 99212

== ENCOUNTER 2024-02-21 12:30 | Outpatient (CLI) | payer OTHER | END 2024-02-21 12:31 | disposition home or self-care (01) | LOC: SC 12:30 | PROVIDERS: ATTEND Nurse Practitioner Family | DX: G47.33 Obstructive sleep apnea (adult) (pediatric) (principal); R09.02 Hypoxemia; E11.9 Type 2 diabetes mellitus without complications; I10 Essential (primary) hypertension | CPT/HCPCS: 95806 ==

== ENCOUNTER 2024-02-26 09:32 | Outpatient (CLI) | payer OTHER ==
--- NOTE | 2024-02-26 11:36 | CT Report ---
PROCEDURE: Sinus INDICATIONS: SINUSITIS TECHNIQUE: Noncontrast 3.0 mm axial images acquired from the frontal sinuses to the mid-sella, with coronal and sagittal reformats. For radiation dose reduction, the following was used: automated exposure control , adjustment of mA and/or kV according to patient size. COMPARISON: None. FINDINGS: Image quality: Excellent. Sinuses: No fluid levels. Very minimal scattered areas of mucosal thickening are present. No mucus re tention cysts versus polyps. Ostiomeatal Complexes: Ostiomeatal complexes are patent. Miscellaneous: Visualized intra-orbital contents are normal. Bilateral middle turbinate zarina bull venkatesh. ] Were nasal septal deviation. No paradoxical turbinate. IMPRESSION: Very minimal appearance of scattered mucosal thickening without fluid levels. Reviewed by: Estee Knott MD on 02/26/2024 11:35 AM PDT Approved by: Estee Knott MD on 02/26/2024 11:35 AM PDT Station ID: [id number]
== END 2024-02-26 09:33 | disposition home or self-care (01) ==
LOC: DI 09:32
PROVIDERS: ATTEND Physician Assistant Medical
DX: J32.9 Chronic sinusitis, unspecified (principal)

== ENCOUNTER 2024-03-13 08:07 | Outpatient (CLI) | payer OTHER ==
[2024-03-13 08:36] LABS: CHOL/HDL RATIO 2.2 (<5.0); CHOLESTEROL 105 mg/dL; HDL CHOLESTEROL 47 mg/dL; LDL CHOLESTEROL,CALCULATED 39 mg/dL; LDL/HDL RATIO 0.8 (<3.6); TRIGLYCERIDES 95 mg/dL (48-352); VLDL CHOLESTEROL 19 mg/dL
[2024-03-13 09:33] LABS: ESTIMATED AVERAGE GLUCOSE 74 mg/dL (70-100); HEMOGLOBIN A1c% 4.2 % (4.27-6.07)
== END 2024-03-13 08:08 | disposition home or self-care (01) ==
LOC: LAB 08:07
PROVIDERS: ATTEND Physician Assistant Medical
DX: E11.9 Type 2 diabetes mellitus without complications (principal)
CPT/HCPCS: 36415; 80061; 83036; 83721

== ENCOUNTER 2024-03-13 09:35 | Outpatient (CLI) | payer OTHER ==
--- NOTE | 2024-03-13 09:57 | Sleep Patient Instructions ---
Sleep Center Visit Summary - Patient Visit Information Reason for Visit: Sleep study follow-up - Patient Instructions Additional Instructions: You do have mild obstructive sleep apnea. We have reviewed treatment options. Please consider an oral appliance or CPAP therapy for your sleep apnea. Please call office to schedule a follow up appointment in the sleep care office. - Clinic Information Contact: [facility] [address] [place] [address] [email or web address] T: [phone]
--- NOTE | 2024-03-13 10:03 | SLEEP CARE CONSULTATION ---
Information from patient questionnaire entered by Daria Arechiga. I have reviewed and concur with the information entered by Daria Arechiga. This document represents the service I personally performed and the decisions made by , Angélica Merchant ARNP. History of Present Illness Service Date and Time: 03/13/2024 0935 Initial [place] Sleepiness Scale score: 5 (01/17/24) Current [place] Sleepiness Scale score: 3 (03/13/24) Additional HPI information: MORIS FABIAN returns for follow up and results of the recently performed home sleep study. The sleep study done on 02/21/2024 showed mild obstructive sleep apnea with an average AHI of 8.4 and michael oxygen saturation of 67%. I explained the pathophysiology behind obstructive sleep apnea. We then spent quite a bit of time discussing different treatment options. For mild obstructive sleep apnea, surgery and oral appliance are alternatives to nasal CPAP therapy but in moderate or severe cases, nasal CPAP is the most effective and reliable treatment. I reviewed the impact of weight changes on sleep apnea and strongly recommended losing weight. After some discussion, the patient would like to think about his options and will call if he decides to treat his mild MARIZOL. Sleep Study - Results Type of Sleep Study: Home sleep study (COMPLETED 02/21/24) Prior sleep studies: Yes Polysomnography/Home Sleep Study results: Physician Impression: The quality of the study is good. The length of the study is adequate (> 240 minutes). Please also see the tabulated and graphic data. 1. Obstructive Sleep Apnea-Hypopnea (ICD-10 G47.33), mild, with an AHI of 8.4/hr and michael SaO2 of 67%. During the study, the patient had 2 apneas (2 obstructive, 0 central, 0 mixed) and 42 hypopneas. The longest episode lasted 135.5 seconds. The patient did not sleep supine during this study (supine AHI was 0.0 and non-supine, 8.47). 2. Hypoxemia (ICD-10 R09.02), moderate, with the lowest oxygen saturation of 67 % and 352.9 minutes with SaO2 under 90%. Baseline oxygen saturation was low (Average oxygen saturation was 84%). Allergies and Home Medications Known drug allergies: Yes (as listed) Drug allergies reviewed: Yes Home medication list reviewed: Yes (as updated in EMR) Allergy and home medication list: Allergies amlodipine Allergy (Verified 03/12/24 07:50) Edema amoxicillin Allergy (Verified 03/12/24 07:50) Edema clavulanic acid Allergy (Verified 03/12/24 07:50) Edema colchicine Allergy (Verified 03/12/24 07:50) Edema Sulfa (Sulfonamide Antibiotics) Allergy (Verified 03/12/24 07:50) Itching cyclobenzaprine Adverse Reaction (Verified 03/12/24 07:50) Unknown simvastatin Adverse Reaction (Verified 03/12/24 07:50) Unknown Pwiwrlm-LDA-ZkT Reductase Inhibitor [Jcpqveu-Auh-Owc Reductase Inhibitor] Adverse Reaction (Verified 03/12/24 07:50) Cramps Review of Systems Review of systems same as previous: Yes (NO CHANGE) Physical Exam Vital signs obtained and entered by: DARIA Ontiveros MA Blood Pressure: 142/54 (LEFT ARM) Cuff size: regular Heart Rate: 58 O2 Saturation: 95 Height: 5 ft 10 in Weight: 166 lb Body Mass Index: 23.8 BMI Classification: Normal Impression and Plan 1. Obstructive Sleep Apnea-Hypopnea Syndrome, mild, with lowest oxygen saturation of 67%. Obviously this is the cause of the patients symptoms of unrefreshed sleep, and excessive daytime sleepiness. Positive pressure therapy could benefit hypertension and diabetes. Moris says he is about to start dialysis at night and he is not sure he wants to deal with the another machine to be hooked up while he is sleeping. He was happy to hear it was mild in severity. He already wears oxygen at night to keep his oxygen levels up. He did not wear the oxygen the night of the sleep study. Moris says he will think about it the options we talked about including the oral appliance and the CPAP. He will call if he decides to go forward with any treatment. 2. Hypoxemia, moderate, with a michael oxygen saturation of 67% and 352.9 minutes spent under 90%. The baseline oxygen saturation was normal with a low average oxygen saturation of 84%. * Patient to call if he decides to treat his sleep apnea. * Return determined by patient choice, as needed at this time. Follow up with Sleep Care in: as needed Plan: Patient to call if he decides to treat mild MARIZOL. Visit Type: In Office Time Spent with Patient (minutes): 15 Provider Statement: I spent 100% of the Face to Face Visit with the patient with greater than 50% spent counseling the patient and coordination of care.
[2024-03-13 10:11] VITALS: BP 142/54; O2SAT 95
== END 2024-03-13 09:36 | disposition home or self-care (01) ==
LOC: SC 09:35
PROVIDERS: ATTEND Nurse Practitioner Family
DX: G47.33 Obstructive sleep apnea (adult) (pediatric) (principal); E11.9 Type 2 diabetes mellitus without complications
CPT/HCPCS: 36415; 80061; 83036; 83721; 99212

== ENCOUNTER 2024-04-14 06:21 | Day surgery (SDC) | payer OTHER ==
[2024-04-14] MEDS ORDERED: CIPROFLOXACIN 400 MG/200 ML 400 MG/200 ML BAG IV ONE (06:26)
[2024-04-14] MEDS: LACTATED RINGERS 1,000 ML IV ONE ×2 (06:29→07:58)
[2024-04-14] MEDS ORDERED: LIDOCAINE 2% URO-JET 5 ML SYRINGE UR ONE ×3 (07:07→07:49)
[2024-04-14] MEDS ORDERED: ceFAZolin 2 GM VIAL ONE (07:19)
[2024-04-14] MEDS: ceFAZolin 2 GM VIAL IVP ONE (07:30)
[2024-04-14] MEDS: LIDOCAINE 2% URO-JET 5 ML SYRINGE UR ONE (07:37)
[2024-04-14] MEDS ORDERED: HYDROcod/ACETAM 5/325 MG TABLET PO PRN (08:01)
--- NOTE | 2024-04-14 08:11 | Discharge Plan ---
Discharge Plan Problem Reviewed?: Yes Disposition: Home, Self Care Condition: Stable Prescriptions: Docusate Sodium 100Mg Capsule [Colace 100Mg Capsule] 100 mg PO DAILY #14 cap oxyCODONE [Roxicodone] 5 mg PO Q4H PRN #10 tablet PRN Reason: Pain Diet: Regular Activity Restrictions: No Restrictions Shower Restrictions: No Driving Restrictions: No Instruction Topics: Cystoscopy Additional Instructions or Follow Up instructions: You will be contacted for follow-up with Dr. Ramos in roughly 6 weeks time No Smoking: If you smoke, Please STOP! Call for help. Follow-up with: Hayde Renee PA-C [Primary Care Provider] - Tarun Ramos MD [Provider Admit Priv/Credential] -
--- NOTE | 2024-04-14 08:14 | OPERATIVE REPORT ---
Operative Report - General Procedure Date: 04/14/24 Planned Procedure: Cystoscopy, UroLift procedure Pre-Op Diagnosis: BPH with LUTS Procedure Performed: Cystoscopy, UroLift procedure with 4 implants Post Op Diagnosis: BPH with LUTS - Procedure Note Primary Surgeon: Richard Anesthesia Provider: None Anesthesia Technique: Local Pathology: none Estimated Blood Loss (mL): 0 Complications: none - Other Other Information/Narrative: After informed consent was obtained the patient brought to the OR and laid in the dorsolithotomy position. He was then prepped in usual sterile fashion. A formal timeout was performed reconfirming the patient procedure. 2 Uro-Jet's were placed for local. This was left to stand for about 5 minutes. A UroLift cystoscope was advanced easily into the urinary bladder. He was noted to have lateral lobe obstructing prostate tissue with no median lobe. He had a 1+ trabeculated bladder. UroLift implants were placed 5 mm distal from the bladder neck and just proximal to the verumontanum on either side for a total of 4 implants. We reinspected our implant which showed a wide open channel and there was no bleeding. We elected not to leave a catheter. This concluded the procedure the patient tolerated the procedure well. He was brought back without further incident. He will follow-up in 6 weeks time
[2024-04-14] MEDS: HYDROcod/ACETAM 5/325 MG TABLET ONE (08:23)
[2024-04-14 08:35] VITALS: BP 185/66
[2024-04-14 08:48] VITALS: O2SAT 94
== END 2024-04-14 06:22 | disposition home or self-care (01) ==
LOC: SDS 06:21
PROVIDERS: ATTEND Urology
DX: N40.1 Benign prostatic hyperplasia with lower urinary tract symptoms (principal); R39.12 Poor urinary stream; Z87.891 Personal history of nicotine dependence; I12.0 Hypertensive chronic kidney disease with stage 5 chronic kidney disease or end stage renal disease; E11.22 Type 2 diabetes mellitus with diabetic chronic kidney disease; N18.6 End stage renal disease
CPT/HCPCS: 52441; 52442; A9270; J7120

== ENCOUNTER 2024-06-12 09:23 | Outpatient (CLI) | payer MEDICARE, OTHER ==
[2024-06-12 09:53] LABS: CHOL/HDL RATIO 3.1 (<5.0); CHOLESTEROL 138 mg/dL; HDL CHOLESTEROL 44 mg/dL; LDL CHOLESTEROL,CALCULATED 69 mg/dL; LDL/HDL RATIO 1.6 (<3.6); TRIGLYCERIDES 127 mg/dL; VLDL CHOLESTEROL 25 mg/dL
[2024-06-12 09:58] LABS: ESTIMATED AVERAGE GLUCOSE 105 mg/dL (70-100); HEMOGLOBIN A1c% 5.3 % (4.27-6.07)
== END 2024-06-12 09:24 | disposition home or self-care (01) ==
LOC: LAB 09:23
PROVIDERS: ATTEND Physician Assistant Medical
DX: E11.9 Type 2 diabetes mellitus without complications (principal)
CPT/HCPCS: 36415; 80061; 83036; 83721